=== PATIENT | male | born 1970 | race African-American/Black ===

== ENCOUNTER 2017-11-18 09:03 | Inpatient (IN) | payer OTHER ==
[2017-11-18 10:22] VITALS: BMI 29.2
--- NOTE | 2017-11-18 11:55 | HP ---
CIWA Score - CIWA Score Nausea/Vomitin-No Nausea/No Vomiting Muscle Tremors: 4-Moderate,w/Arms Extend Anxiety: 4-Mod. Anxious/Guarded Agitation: 4-Moderately Restless Paroxysmal Sweats: 4-Forehead w/Sweat Beads Orientation: 0-Oriented Tacttile Disturbances: 1-Very Mild Itch/Numbness Auditory Disturbances: 0-None Visual Disturbances: 0-None Headache: 0-None Present CIWA-Ar Total Score: 17 Admission ROS [facility] - HPI Chief Complaint: I want to get sober, I want to get my life back on track Allergies/Adverse Reactions: Allergies Allergy/AdvReac Type Severity Reaction Status Date / Time No Known Allergies Allergy Verified 11/18/17 10:19 History of Present Illness: 47 y/o man (AA/White) presented to [facility] requesting detox and rehab from alcohol dependence and cocaine/THC abuse. Longest sobriety 3-4 months in 2017. Pmhx of asthma (never intubated, takes albuterol mdi prn); pshx of appendectomy at age 12 or 13; pphx of bipolar (noncompliant with meds: trileptal, wellbutrin , neurontin, last took few months ago); chronic nicotine dependence and cocaine dependence, cannabis abuse. Exam Limitations: No Limitations - Ebola screening Have you traveled outside of the country in the last 21 days: No Have you had contact with anyone from an Ebola affected area: No Have you been sick,other than usual withdrawal symptoms: No - Review of Systems Constitutional: Diaphoresis (runny nose) Respiratory: reports: No Symptoms reported, Cough (occasional dry cough) Cardiac: reports: No Symptoms Reported GI: reports: No Symptoms Reported : reports: No Symptoms Reported Musculoskeletal: reports: Back Pain (b/l flank pain for past 4-5 days, pain a little less now) Integumentary: reports: No Symptoms Reported Neuro: reports: Tremors Endocrine: reports: No Symptoms Reported Hematology: reports: No Symptoms Reported Psychiatric: reports: Orientated x3, Depressed (a little depressed) Other Systems: Reviewed and Negative Patient History - Patient Medical History Hx Anemia: No Hx Asthma: Yes (stable on albuterol mdi) Hx Chronic Obstructive Pulmonary Disease (COPD): No Hx Cancer: No Hx Cardiac Disorders: No Hx Congestive Heart Failure: No Hx Hypertension: No Hx Hypercholesterolemia: No Hx Pacemaker: No HX Cerebrovascular Accident: No Hx Seizures: Yes (1997, alcohol related) Hx Dementia: No Hx Diabetes: No Hx Gastrointestinal Disorders: No Hx Liver Disease: No Hx Genitourinary Disorders: No Hx Sexually Transmitted Disorders: No Hx Renal Disease (ESRD): No Hx Thyroid Disease: No Hx Human Immunodeficiency Virus (HIV): No (negative, last tested few years, accept retesting) Hx Hepatitis C: No Hx Depression: Yes (a little) Hx Suicide Attempt: Yes (age 40, cut left wrist while drinking and depressed) Hx Bipolar Disorder: Yes (dx in 1991 (on wellbutrin, trileptal, neurontin but nc x few months) Hx Schizophrenia: No - Patient Surgical History Past Surgical History: Yes Hx Neurologic Surgery: No Hx Cataract Extraction: No Hx Cardiac Surgery: No Hx Lung Surgery: No Hx Breast Surgery: No Hx Breast Biopsy: No Hx Abdominal Surgery: No Hx Appendectomy: Yes (at age 12 or 13) Hx Cholecystectomy: No Hx Genitourinary Surgery: No Hx Orthopedic Surgery: No Anesthesia Reaction: No - PPD History Previous Implant?: Yes Documented Results: Negative w/proof Implanted On Prior R Admission?: Yes Date: 11/21/15 PPD to be Administered?: Yes - Reproductive History Patient is a Female of Child Bearing Age (11 -55 yrs old): No (male patient) - Smoking Cessation Smoking history: Current every day smoker Have you smoked in the past 12 months: Yes Aproximately how many cigarettes per day: 20 Hx Chewing Tobacco Use: No Initiated information on smoking cessation: Yes 'Breaking Loose' booklet given: 11/18/17 - Substance & Tx. History Hx Alcohol Use: Yes Hx Substance Use: Yes Substance Use Type: Alcohol, Cocaine, Marijuana - Substances Abused Alcohol Route: Oral Frequency: Daily Amount used: vodka(4-5 pints) Age of first use: 17 Date of Last Use: 11/18/17 Cocaine Route: Smoking Frequency: 1-2 times per week Amount used: $90 Age of first use: 41 Date of Last Use: 11/15/17 Marijuana/Hashish Route: Smoking Frequency: 1-3 times last 30 days Amount used: $10 Age of first use: 18 Date of Last Use: 11/17/17 Family Disease History - Family Disease History Family Disease History: Other: Father (alcoholic), Mother (heroin addict, at age 54 from HIV) Admission Physical Exam [facility] - Vital Signs Vital Signs: Vital Signs - 24 hr 11/18/17 09:25 Temperature 97.1 F L Pulse Rate 81 Respiratory 18 Rate Blood Pressure 113/74 - Physical General Appearance: Yes: Within Normal Limits, No Apparent Distress HEENTM: Yes: Within Normal Limits, EOMI, Normocephalic Respiratory: Yes: Within Normal Limits, Lungs Clear Neck: Yes: Within Normal Limits, No masses,lesions,Nodules, Supple Breast: Yes: Within Normal Limits Cardiology: Yes: Within Normal Limits, Regular Rhythm, Regular Rate, S1, S2 Abdominal: Yes: Within Normal Limits, Normal Bowel Sounds, Non Tender, Soft ( old healed surgical scar right lower quadrant from appendectomy) Genitourinary: Yes: Within Normal Limits Back: Yes: Within Normal Limits (no flank tenderness/pain on palpation bilaterally) Musculoskeletal: Yes: Within Normal Limits, full range of Motion, Gait Steady Extremities: Yes: Within Normal Limits, Normal Range of Motion, Tremors Neurological: Yes: Within Normal Limits, automation qa analyst II-XII NML intact, Fully Oriented Integumentary: Yes: Within Normal Limits Lymphatic: Yes: Within Normal Limits - Diagnostic (1) Cannabis abuse Current Visit: Yes Status: Chronic (2) Alcohol dependence with uncomplicated withdrawal Current Visit: Yes Status: Acute (3) Asthma Current Visit: Yes Status: Chronic Qualifiers: Asthma severity: mild intermittent Asthma complication type: uncomplicated Qualified Code(s): J45.20 - Mild intermittent asthma, uncomplicated (4) Cocaine abuse Current Visit: Yes Status: Chronic Comment: it was experimental moment (5) Nicotine dependence Current Visit: Yes Status: Chronic Qualifiers: Nicotine product type: cigarettes Substance use status: uncomplicated Qualified Code(s): F17.210 - Nicotine dependence, cigarettes, uncomplicated Cleared for Admission S - Detox or Rehab [facility] Level of Care: Medically Managed Detox Regimen/Protocol: Librium [facility] Breath Alcohol Content Breath Alcohol Content: 0.044 Urine Drug Screen - Results Drug Screen Negative: No Urine Drug Screen Results: THC-Marijuana, NABILA-Cocaine
[2017-11-18] MEDS ORDERED: ACETAMINOPHEN 325 MG TABLET (FP) PO PRN (12:40)
[2017-11-18] MEDS ORDERED: chlordiazePOXIDE HCL 25 MG CAPSULE PO PRN (12:40)
[2017-11-18] MEDS ORDERED: MAGNESIUM CITRATE 300 ML BOTTLE PO PRN (12:40)
[2017-11-18] MEDS ORDERED: guaiFENesin/D-METHORPHAN HB 10 ML UNIT-DOSE CUPS PO PRN (12:40)
[2017-11-18] MEDS ORDERED: P-EPHED 60MG/TRIPROLIDI 2.5MG TABLET PO PRN (12:40)
[2017-11-18] MEDS ORDERED: NICOTINE POLACRILEX 4 MG GUM BUC PRN (12:40)
[2017-11-18] MEDS ORDERED: LOPERAMIDE HCL 2 MG CAPSULE PO PRN (12:40)
[2017-11-18] MEDS ORDERED: MAGNESIUM HYDROX 2400MG/30ML ORAL SUSPENSION 30 ML CUP PO PRN (12:40)
[2017-11-18] MEDS ORDERED: IBUPROFEN 400 MG TABLET (FP) PO PRN (12:40)
[2017-11-18] MEDS ORDERED: MAG HYDROX/AL HYDROX/SIMETH 30 ML UNIT-DOSE CUP PO PRN (12:40)
[2017-11-18] MEDS ORDERED: MENTHOL/PHENOL 1 EACH UD MM PRN (12:40)
[2017-11-18] MEDS ORDERED: chlordiazePOXIDE HCL 25 MG CAPSULE PO ONE (13:30)
[2017-11-18] MEDS: chlordiazePOXIDE HCL 25 MG CAPSULE PO SCH ×2 (18:00→22:57)
[2017-11-18 19:24] LABS: URINE APPEARANCE CLEAR; URINE BILIRUBIN NEGATIVE (NEGATIVE); URINE BLOOD NEGATIVE (NEGATIVE); URINE COLOR STRAW; URINE GLUCOSE (UA) NEGATIVE (NEGATIVE); URINE KETONE NEGATIVE (NEGATIVE); URINE LEUK ESTERASE NEGATIVE (NEGATIVE); URINE NITRITE NEGATIVE (NEGATIVE); URINE PROTEIN NEGATIVE (NEGATIVE); URINE UROBILINOGEN NEGATIVE mg/dL (0.2-1.0)
[2017-11-18] MEDS: THIAMINE HCL 100 MG TABLET (FP) PO SCH (22:57)
[2017-11-18] MEDS: hydrOXYzine PAMOATE 25 MG CAPSULE (FP) PO PRN (22:59)
[2017-11-19] MEDS: chlordiazePOXIDE HCL 25 MG CAPSULE PO SCH ×4 (05:30→22:19)
--- NOTE | 2017-11-19 09:35 | CONSULT ---
[facility] Psychiatric Consult - Data Date of interview: 11/19/17 Admission source: [facility] Identifying data: Pt. is a 47 year old male, single, father of one, and currently unemployed. This is one of multiple admissions for patient. Pt. admitted for alcohol, cocaine and marijuana dependence. Substance Abuse History: Following information confirmed with Mr. Cha: Smoking Cessation. Smoking history: Current every day smoker. Have you smoked in the past 12 months: Yes. Aproximately how many cigarettes per day: 20. Hx Chewing Tobacco Use: No. Initiated information on smoking cessation: Yes. ' Breaking Loose' booklet given: 11/18/17. - Substance & Tx. History. Hx Alcohol Use: Yes. Hx Substance Use: Yes. Substance Use Type: Alcohol, Cocaine , Marijuana. - Substances Abused. Alcohol. Route: Oral. Frequency: Daily. Amount used: vodka(4-5 pints). Age of first use: 17. Date of Last Use : 11/18/17. Cocaine. Route: Smoking. Frequency: 1-2 times per week. Amount used: $90. Age of first use: 41. Date of Last Use: 11/15/17. Marijuana/Hashish. Route: Smoking. Frequency: 1-3 times last 30 days. Amount used: $10. Age of first use: 18. Date of Last Use: 11/17/17 Medical History: Asthma, Seizures (1997 r/t alcohol withdrawal) Psychiatric History: Patient's first encounter with a psychatrist was as a child. Reports two hospitalizations as a child and none as an adult. Pt. reports a diagnosis of bipolar disorder and was on the medication regime of wellbutrin, trileptal and gabapentin. Pt. denies current outpatient care but is requesting to restart wellbutrin and gabapentin. Pt. denies suicidal and homicidal ideation. Physical/Sexual Abuse/Trauma History: Denies. Mental Status Exam - Mental Status Exam Alert and Oriented to: Time, Place, Person Cognitive Function: Good Patient Appearance: Well Groomed Mood: Euthymic Affect: Mood Congruent Patient Behavior: Fatigued (Pt. awaking up at the moment of interview. ), Cooperative Speech Pattern: Appropriate Voice Loudness: Normal Thought Process: Goal Oriented Thought Disorder: Not Present Hallucinations: Denies Suicidal Ideation: Denies Homicidal Ideation: Denies Insight/Judgement: Poor Sleep: Fair Appetite: Good Muscle strength/Tone: Normal Gait/Station: Normal Psychiatric Findings - Problem List ([place] 1, 2,3) (1) Bipolar disorder Current Visit: Yes Status: Chronic Comment: Self reports. (2) Alcohol dependence with uncomplicated withdrawal Current Visit: Yes Status: Acute (3) Cannabis abuse Current Visit: Yes Status: Chronic (4) Cocaine abuse Current Visit: Yes Status: Chronic Comment: it was experimental moment (5) Nicotine dependence Current Visit: Yes Status: Chronic Qualifiers: Nicotine product type: cigarettes Substance use status: uncomplicated Qualified Code(s): F17.210 - Nicotine dependence, cigarettes, uncomplicated - Initial Treatment Plan Initial Treatment Plan: Psychoeducation provided. Detoxification in progress. Wellbutrin 150mg XL + Gabapentin 300mg TID to be restarted. Benefits and side effects discussed. Verbal consent given. Will continue to monitor patient.
--- NOTE | 2017-11-19 10:21 | PN ---
S CIWA - CIWA Score Nausea/Vomitin Muscle Tremors: 3 Anxiety: 3 Agitation: 3 Paroxysmal Sweats: 1-Minimal Palms Moist Orientation: 0-Oriented Tacttile Disturbances: 1-Very Mild Itch/Numbness Auditory Disturbances: 1-Very Mild Visual Disturbances: 0-None Headache: 2-Mild CIWA-Ar Total Score: 17 [facility] Progress Note (SOAP) Subjective: ALERT,IRRITABLE,ANXIOUS,INTERRUPTED SLEEP,TREMOR Objective: 11/19/17 10:19 Vital Signs Temperature 97.9 F 11/19/17 06:00 Pulse Rate 76 11/19/17 06:00 Respiratory Rate 18 11/19/17 06:00 Blood Pressure 115/73 11/19/17 06:00 O2 Sat by Pulse Oximetry (%) EKG NSR,NORMAL ECG Laboratory Last Values Urine Color Straw 11/18/17 17:00 Urine Appearance Clear 11/18/17 17:00 Urine pH 6.0 (5.0-8.0) 11/18/17 17:00 Ur Specific [place] 1.009 (1.001-1.035) 11/18/17 17:00 Urine Protein Negative (NEGATIVE) 11/18/17 17:00 Urine Glucose (UA) Negative (NEGATIVE) 11/18/17 17:00 Urine Ketones Negative (NEGATIVE) 11/18/17 17:00 Urine Blood Negative (NEGATIVE) 11/18/17 17:00 Urine Nitrite Negative (NEGATIVE) 11/18/17 17:00 Urine Bilirubin Negative (NEGATIVE) 11/18/17 17:00 Urine Urobilinogen Negative mg/dL (0.2-1.0) 11/18/17 17:00 Ur Leukocyte Esterase Negative (NEGATIVE) 11/18/17 17:00 LABS PENDING Assessment: 11/19/17 10:20 WITHDRAWAL SYMPTOM Plan: CONTINUE DETOX
[2017-11-19 10:40] LABS: HEMATOCRIT 43.3 % (35.4-49); MCH 29.1 pg (25.7-33.7); MCHC 32.4 g/dl (32.0-35.9); MEAN CELL VOLUME 89.8 fl (80-96); MEAN PLT VOLUME 9.5 fl (7.5-11.1); PLATELET COUNT 188 K/MM3 (134-434); RBC 4.83 M/mm3 (4.00-5.60); WHITE BLOOD COUNT 5.5 K/mm3 (4.0-10.0)
[2017-11-19] MEDS: PRENATAL VITAMINS W/ FOLIC ACID TABLET (FP) PO SCH (10:43)
[2017-11-19 10:49] LABS: CHLORIDE 106 mmol/L (98-107); SODIUM 139 mmol/L (136-145)
[2017-11-19 10:57] LABS: ALBUMIN 2.9 g/dl (3.4-5.0); ALK PHOS 148 U/L (45-117); ANION GAP 4 (8-16); BILIRUBIN,TOTAL 0.2 mg/dL (0.2-1.0); BLOOD UREA NITROGEN 18 mg/dL (7-18); CALCIUM 7.9 mg/dL (8.5-10.1); CO2 29 mmol/L (21-32); CREATININE 0.8 mg/dL (0.7-1.3); GLUCOSE,RANDOM 129 mg/dL (74-106); SGOT/AST 16 U/L (15-37); SGPT/ALT 24 U/L (12-78)
[2017-11-19] MEDS: GABAPENTIN 300 MG CAPSULE (FP) PO SCH ×2 (13:34→22:19)
[2017-11-19] MEDS: hydrOXYzine PAMOATE 25 MG CAPSULE (FP) PO PRN (22:19)
[2017-11-19] MEDS: THIAMINE HCL 100 MG TABLET (FP) PO SCH (22:19)
--- NOTE | 2017-11-19 23:30 | EKG ---
Test Reason : Blood Pressure : / mmHG Vent. Rate : 085 BPM Atrial Rate : 085 BPM P-R Int : 170 ms QRS Dur : 086 ms QT Int : 346 ms P-R-T Axes : 064 023 029 degrees QTc Int : 411 ms NORMAL SINUS RHYTHM NORMAL ECG NO PREVIOUS ECGS AVAILABLE Confirmed by SAMMI MATA, NIURKA ([id number]) on 11/19/2017 11:30:28 PM Referred By: Carlitos Villalpando Confirmed By:NIURKA CHAPA MD
[2017-11-20] MEDS: GABAPENTIN 300 MG CAPSULE (FP) PO SCH ×3 (05:27→22:00)
[2017-11-20] MEDS: chlordiazePOXIDE HCL 25 MG CAPSULE PO SCH ×2 (05:27→10:32)
--- NOTE | 2017-11-20 10:16 | PN ---
S CIWA - CIWA Score Nausea/Vomitin Muscle Tremors: 3 Anxiety: 3 Agitation: 2 Paroxysmal Sweats: 1-Minimal Palms Moist Orientation: 0-Oriented Tacttile Disturbances: 1-Very Mild Itch/Numbness Auditory Disturbances: 1-Very Mild Visual Disturbances: 0-None Headache: 2-Mild CIWA-Ar Total Score: 16 BHS Progress Note (SOAP) Subjective: ALERT,IRRITABLE,ANXIOUS,INTERRUPTED SLEEP,TREMOR Objective: 11/20/17 10:10 Vital Signs Temperature 97.9 F 11/20/17 06:00 Pulse Rate 80 11/20/17 06:00 Respiratory Rate 18 11/20/17 06:00 Blood Pressure 121/68 11/20/17 06:00 O2 Sat by Pulse Oximetry (%) Laboratory Last Values WBC 5.5 K/mm3 (4.0-10.0) 11/19/17 08:10 RBC 4.83 M/mm3 (4.00-5.60) 11/19/17 08:10 Hgb 14.0 GM/dL (11.7-16.9) 11/19/17 08:10 Hct 43.3 % (35.4-49) 11/19/17 08:10 MCV 89.8 fl (80-96) 11/19/17 08:10 MCH 29.1 pg (25.7-33.7) 11/19/17 08:10 MCHC 32.4 g/dl (32.0-35.9) 11/19/17 08:10 RDW 13.0 % (11.9-15.9) 11/19/17 08:10 Plt Count 188 K/MM3 (134-434) D 11/19/17 08:10 MPV 9.5 fl (7.5-11.1) 11/19/17 08:10 Sodium 139 mmol/L (136-145) 11/19/17 08:10 Potassium 4.0 mmol/L (3.5-5.1) 11/19/17 08:10 Chloride 106 mmol/L (98-107) 11/19/17 08:10 Carbon Dioxide 29 mmol/L (21-32) 11/19/17 08:10 Anion Gap 4 (8-16) L 11/19/17 08:10 BUN 18 mg/dL (7-18) D 11/19/17 08:10 Creatinine 0.8 mg/dL (0.7-1.3) 11/19/17 08:10 Creat Clearance w eGFR > 60 (>60) 11/19/17 08:10 Random Glucose 129 mg/dL (74-106) H D 11/19/17 08:10 Calcium 7.9 mg/dL (8.5-10.1) L 11/19/17 08:10 Total Bilirubin 0.2 mg/dL (0.2-1.0) D 11/19/17 08:10 AST 16 U/L (15-37) D 11/19/17 08:10 ALT 24 U/L (12-78) D 11/19/17 08:10 Alkaline Phosphatase 148 U/L (45-117) H 11/19/17 08:10 Total Protein 6.0 g/dl (6.4-8.2) L 11/19/17 08:10 Albumin 2.9 g/dl (3.4-5.0) L 11/19/17 08:10 Urine Color Straw 11/18/17 17:00 Urine Appearance Clear 11/18/17 17:00 Urine pH 6.0 (5.0-8.0) 11/18/17 17:00 Ur Specific [place] 1.009 (1.001-1.035) 11/18/17 17:00 Urine Protein Negative (NEGATIVE) 11/18/17 17:00 Urine Glucose (UA) Negative (NEGATIVE) 11/18/17 17:00 Urine Ketones Negative (NEGATIVE) 11/18/17 17:00 Urine Blood Negative (NEGATIVE) 11/18/17 17:00 Urine Nitrite Negative (NEGATIVE) 11/18/17 17:00 Urine Bilirubin Negative (NEGATIVE) 11/18/17 17:00 Urine Urobilinogen Negative mg/dL (0.2-1.0) 11/18/17 17:00 Ur Leukocyte Esterase Negative (NEGATIVE) 11/18/17 17:00 RPR Titer Nonreactive (NONREACTIVE) 11/19/17 08:10 Hepatitis C Antibody <0.1 s/co ratio (0.0-0.9) 11/19/17 08:10 HIV 1&2 Antibody Screen Negative 11/19/17 08:10 HIV P24 Antigen Negative 11/19/17 08:10 Assessment: 11/20/17 10:12 WITHDRAWAL SYMPTOM Plan: CONTINUE DETOX,BGM MONITORING,INITIAL GLUCOSE 129,FASTING GLUCOSE IN AM
[2017-11-20] MEDS: PRENATAL VITAMINS W/ FOLIC ACID TABLET (FP) PO SCH (10:32)
[2017-11-20] MEDS: chlordiazePOXIDE 5 MG CAPSULE PO SCH ×2 (17:45→22:00)
--- NOTE | 2017-11-20 19:11 | PN ---
JEET Progress Note Note: Psychiatric nurse practitioner note: Pt. requesting to restart trileptal. Pt with a history of taking trileptal 300mg BID but discontinued medication after drinking alcohol daily. Will start patient on trileptal 150mg BID. Pt. agreeable with plan. Benefits and side effects discussed. Verbal consent given. Will continue to monitor.
--- NOTE | 2017-11-20 21:34 | PN ---
[facility] Progress Note Note: Report received by MIORA Her patient had bloody BM. Patient was evaluated at the bedside. Patient reports LLQ pain and norma red blood in the toilet bowel. Reports this happen before a month ago. Reports poor medical follow up out patient. Patient AOx3, self directing, in no apparent distress, mildly anxious. Lungs clear throughout, no adventitious breath sounds Heart Rate and Rhythm within normal limits BS x 4, pain on deep palpation on LLQ Plan: Patient was informed on the need to be transfer to [facility] for further evaluation , patient reports understanding. Patient was sent to [facility], report given to Dr. Dov MD.
[2017-11-20] MEDS: THIAMINE HCL 100 MG TABLET (FP) PO SCH (22:00)
[2017-11-20] MEDS: OXcarbazepine 300 MG TABLET (UD) PO SCH (23:19)
[2017-11-21] MEDS: hydrOXYzine PAMOATE 25 MG CAPSULE (FP) PO PRN ×2 (03:39→22:31)
[2017-11-21] MEDS: chlordiazePOXIDE 5 MG CAPSULE PO SCH ×2 (05:45→10:19)
[2017-11-21] MEDS: GABAPENTIN 300 MG CAPSULE (FP) PO SCH ×3 (05:45→22:27)
[2017-11-21] MEDS: PRENATAL VITAMINS W/ FOLIC ACID TABLET (FP) PO SCH (10:19)
--- NOTE | 2017-11-21 10:55 | PN ---
S Progress Note (SOAP) Subjective: ALERT,INTERRUPTED SLEEP,ANXIOUS Objective: 11/21/17 10:54 Vital Signs Temperature 98.1 F 11/21/17 10:13 Pulse Rate 93 H 11/21/17 10:13 Respiratory Rate 18 11/21/17 10:13 Blood Pressure 130/78 11/21/17 10:13 O2 Sat by Pulse Oximetry (%) Assessment: 11/21/17 10:54 WITHDRAWAL SYMPTOM Plan: CONTINUE DETOX.FASTING GLUCOSE PENDING,DISCHARGE IN AM
[2017-11-21] MEDS: chlordiazePOXIDE HCL 10 MG CAPSULE PO SCH ×2 (17:33→22:27)
[2017-11-21] MEDS: THIAMINE HCL 100 MG TABLET (FP) PO SCH (22:27)
[2017-11-21] MEDS ORDERED: ALBUTEROL SO4 18 GM HFA INHALER IH PRN (22:57)
[2017-11-22] MEDS: chlordiazePOXIDE HCL 10 MG CAPSULE PO SCH (05:53)
[2017-11-22] MEDS: GABAPENTIN 300 MG CAPSULE (FP) PO SCH (05:53)
[2017-11-22] MEDS: PRENATAL VITAMINS W/ FOLIC ACID TABLET (FP) PO SCH (09:22)
[2017-11-22] MEDS: OXcarbazepine 300 MG TABLET (UD) PO SCH (09:24)
[2017-11-22 09:54] VITALS: BP 133/84; PULSE 95; TEMP 96.1
--- NOTE | 2017-11-22 12:16 | DS ---
[facility] Detox Discharge Summary Admission Date: 11/18/17 Discharge Date: 11/22/17 - History Present History: Alcohol Dependence Additional Comments: discuss aftercare with counselor and patient that the patient wants to go home waiting for inpatient rehab position available, patient is confident maintenance sober by attending community support meeting till position open. - Physical Exam Results Vital Signs: Vital Signs Temperature 96.1 F L 11/22/17 09:53 Pulse Rate 95 H 11/22/17 09:53 Respiratory Rate 20 11/22/17 09:53 Blood Pressure 133/84 11/22/17 09:53 O2 Sat by Pulse Oximetry (%) Pertinent Admission Physical Exam Findings: withdrawal sx Laboratory Last Values WBC 5.5 K/mm3 (4.0-10.0) 11/19/17 08:10 RBC 4.83 M/mm3 (4.00-5.60) 11/19/17 08:10 Hgb 14.0 GM/dL (11.7-16.9) 11/19/17 08:10 Hct 43.3 % (35.4-49) 11/19/17 08:10 MCV 89.8 fl (80-96) 11/19/17 08:10 MCH 29.1 pg (25.7-33.7) 11/19/17 08:10 MCHC 32.4 g/dl (32.0-35.9) 11/19/17 08:10 RDW 13.0 % (11.9-15.9) 11/19/17 08:10 Plt Count 188 K/MM3 (134-434) D 11/19/17 08:10 MPV 9.5 fl (7.5-11.1) 11/19/17 08:10 Sodium 139 mmol/L (136-145) 11/19/17 08:10 Potassium 4.0 mmol/L (3.5-5.1) 11/19/17 08:10 Chloride 106 mmol/L (98-107) 11/19/17 08:10 Carbon Dioxide 29 mmol/L (21-32) 11/19/17 08:10 Anion Gap 4 (8-16) L 11/19/17 08:10 BUN 18 mg/dL (7-18) D 11/19/17 08:10 Creatinine 0.8 mg/dL (0.7-1.3) 11/19/17 08:10 Creat Clearance w eGFR > 60 (>60) 11/19/17 08:10 POC Glucometer 107 UNITS (80-120) 11/22/17 05:56 Random Glucose 129 mg/dL (74-106) H D 11/19/17 08:10 Fasting Glucose 108 mg/dL (70-105) H 11/21/17 08:00 Calcium 7.9 mg/dL (8.5-10.1) L 11/19/17 08:10 Total Bilirubin 0.2 mg/dL (0.2-1.0) D 11/19/17 08:10 AST 16 U/L (15-37) D 11/19/17 08:10 ALT 24 U/L (12-78) D 11/19/17 08:10 Alkaline Phosphatase 148 U/L (45-117) H 11/19/17 08:10 Total Protein 6.0 g/dl (6.4-8.2) L 11/19/17 08:10 Albumin 2.9 g/dl (3.4-5.0) L 11/19/17 08:10 Urine Color [place]raw 11/18/17 17:00 Urine Appearance Clear 11/18/17 17:00 Urine pH 6.0 (5.0-8.0) 11/18/17 17:00 Ur Specific [place] 1.009 (1.001-1.035) 11/18/17 17:00 Urine Protein Negative (NEGATIVE) 11/18/17 17:00 Urine Glucose (UA) Negative (NEGATIVE) 11/18/17 17:00 Urine Ketones Negative (NEGATIVE) 11/18/17 17:00 Urine Blood Negative (NEGATIVE) 11/18/17 17:00 Urine Nitrite Negative (NEGATIVE) 11/18/17 17:00 Urine Bilirubin Negative (NEGATIVE) 11/18/17 17:00 Urine Urobilinogen Negative mg/dL (0.2-1.0) 11/18/17 17:00 Ur Leukocyte Esterase Negative (NEGATIVE) 11/18/17 17:00 RPR Titer Nonreactive (NONREACTIVE) 11/19/17 08:10 Hepatitis C Antibody <0.1 s/co ratio (0.0-0.9) 11/19/17 08:10 HIV 1&2 Antibody Screen Negative 11/19/17 08:10 HIV P24 Antigen Negative 11/19/17 08:10 lab noted - Treatment Hospital Course: Detox Protocol Followed, Detoxed Safely, Responded well, Discharged Condition Good, Rehab Referral Accepted Patient has Accepted a Rehab Referral to: [facility] - Medication Discharge Medications: Ambulatory Orders Bupropion HCl [Wellbutrin Xl] 300 mg PO DAILY 11/18/17 Gabapentin [Neurontin -] 300 mg PO BID 11/18/17 Oxcarbazepine [Trileptal -] 300 mg PO BID 11/18/17 Albuterol Sulfate Inhaler - [Ventolin Hfa Inhaler -] 2 inh PO Q4H PRN #1 inhaler 11/22/17 Bupropion HCl [Wellbutrin Xl -] 150 mg PO DAILY #30 tab.sr.24h 11/22/17 Gabapentin [Neurontin -] 300 mg PO TID #90 capsule 11/22/17 Oxcarbazepine [Trileptal -] 150 mg PO BID #60 tablet 11/22/17 - Diagnosis (1) Alcohol dependence with uncomplicated withdrawal Status: Acute (2) Asthma Status: Chronic Qualifiers: Asthma severity: mild Asthma persistence: intermittent Asthma complication type: uncomplicated Qualified Code(s): J45.20 - Mild intermittent asthma, uncomplicated (3) Bipolar disorder Status: Suspected Qualifiers: Active/Remission status: in partial remission Most recent bipolar episode type: mixed Qualified Code(s): F31.77 - Bipolar disorder, in partial remission , most recent episode mixed - AMA Did Patient Leave Against Medical Advice: No
== END 2017-11-22 09:32 | disposition home or self-care (01) | DRG 774 ==
LOC: YASAS 09:03 → Y6N 12:20
PROVIDERS: ADMIT Internal Medicine; ATTEND Internal Medicine
PROC: HZ2ZZZZ Detoxification Services for Substance Abuse Treatment (ICD-10-PCS; principal; 2017-11-18)
DX: F10.230 Alcohol dependence with withdrawal, uncomplicated (principal); F14.20 Cocaine dependence, uncomplicated; F12.20 Cannabis dependence, uncomplicated; F17.210 Nicotine dependence, cigarettes, uncomplicated; F31.77 Bipolar disorder, in partial remission, most recent episode mixed; Z91.5 Personal history of self-harm; Z86.69 Personal history of other diseases of the nervous system and sense organs
CPT/HCPCS: 36415; 80053; 81003; 82947; 82962; 85027; 86593; 86803; 87389; 93005; 93010

== ENCOUNTER 2017-11-20 22:27 | Emergency (ER) | payer OTHER ==
[2017-11-20 22:40] VITALS: BP 131/85; PULSE 98; TEMP 98; BMI 28.0
--- NOTE | 2017-11-20 22:40 | PDOC ---
History of Present Illness - General History Source: Patient Exam Limitations: No Limitations - History of Present Illness Initial Comments: 11/20/17 23:05 The patient is a 47 year old male, with a significant past medical history of bipolar disorder, asthma, substance abuse (cocaine, cannabis, alcohol), who presents to the emergency department from [facility], complaining of left lower quadrant abdominal pain and one episode of hematochezia. The patient reports he noticed bright red blood in his stool after going to the bathroom earlier today. He denies any recent diarrhea, melena or pain with bowel movement. The patient states he has hemorrhoids but has not noticed the bright red blood in his stool in the past. He denies any recent fevers, chills, headache or dizziness. He denies any recent nausea, vomit, diarrhea or constipation. He denies any recent chest pain or shortness of breath. He denies any recent dysuria, frequency, urgency or hematuria. Allergies: NKA <Ryder Morris - Last Filed: 11/21/17 01:08> <Shruti Martinez - Last Filed: 11/21/17 01:50> - General Chief Complaint: Rectal Bleed Stated Complaint: BLOOD IN STOOL Time Seen by Provider: 11/20/17 22:34 Past History <Ryder Morris - Last Filed: 11/21/17 01:08> - Past Medical History Anemia: No Asthma: Yes (stable on albuterol mdi) Cancer: No Cardiac Disorders: No CVA: No COPD: No CHF: No Dementia: No Diabetes: No GI Disorders: No Disorders: No HTN: No Hypercholesterolemia: No Kidney Stones: No Liver Disease: No Seizures: Yes (1998, alcohol related) Thyroid Disease: No - Surgical History Abdominal Surgery: No Appendectomy: Yes (at age 12 or 13) Cardiac Surgery: No Cholecystectomy: No Lung Surgery: No Neurologic Surgery: No Orthopedic Surgery: No - Reproductive History Testicular Surgery: No - Suicide/Smoking/Psychosocial Hx Smoking History: Current every day smoker Have you smoked in the past 12 months: Yes Number of Cigarettes Smoked Daily: 20 Information on smoking cessation initiated: Yes 'Breaking Loose' booklet given: 11/18/17 Hx Alcohol Use: Yes Drug/Substance Use Hx: Yes Substance Use Type: Alcohol, Cocaine, Marijuana Hx Substance Use Treatment: No <Shruti Martinez - Last Filed: 11/21/17 01:50> - Past Medical History Allergies/Adverse Reactions: Allergies Allergy/AdvReac Type Severity Reaction Status Date / Time No Known Allergies Allergy Verified 11/20/17 22:38 Home Medications: Ambulatory Orders Albuterol Sulfate Inhaler - [Ventolin Hfa Inhaler -] 2 inh PO Q4H PRN 11/19/15 Bupropion HCl [Wellbutrin Xl] 300 mg PO DAILY 11/18/17 Gabapentin [Neurontin -] 300 mg PO BID 11/18/17 Oxcarbazepine [Trileptal -] 300 mg PO BID 11/18/17 Abd/GI Specific PMHX - Complaint Specific PMHX Hepatitis: No Pancreatitis: No <Shruti Martinez - Last Filed: 11/21/17 01:50> Review of Systems - Review of Systems Comments:: 11/20/17 23:07 CONSTITUTIONAL: Absent: fever, no chills, no fatigue EYES: Absent: visual changes ENT: Absent: ear pain, no sore throat CARDIOVASCULAR: Absent: chest pain, no palpitations RESPIRATORY: Absent: cough, no SOB GI: Present: +Left lower quadrant abdominal pain. +Hematochezia. Absent: no nausea, no vomiting, no constipation, no diarrhea GENITOURINARY: Absent: dysuria, no frequency, no hematuria MUSKULOSKELETAL: Absent: back pain, no arthralgia, no myalgia SKIN: Absent: rash NEURO: Absent: headache <Ryder Morris - Last Filed: 11/21/17 01:08> *Physical Exam - Vital Signs Last Vital Signs Temp Pulse Resp BP Pulse Ox 98.0 F 98 H 14 131/85 99 11/20/17 22:38 11/20/17 22:38 11/20/17 22:38 11/20/17 22:38 11/20/17 22:38 - Physical Exam Comments: 11/20/17 23:08 GENERAL: Well-appearing, well-nourished. No apparent distress. HEENT: Normocephalic, atraumatic. PERRL, EOM intact. CARDIOVASCULAR: Normal S1, S2. Regular rate and rhythm. PULMONARY: Clear to auscultation bilaterally. ABDOMEN: Soft, non-distended, non-tender. RECTAL: Normal rectal tone. No stool in vault. No external hemorrhoids appreciated. EXTREMITIES: Normal ROM in all four extremities. No gross deformities. SKIN: Warm, dry. No rash NEUROLOGICAL: No focal neurological deficits. <Rydre Morris - Last Filed: 11/21/17 01:08> - Vital Signs Last Vital Signs Temp Pulse Resp BP Pulse Ox 98.0 F 98 H 14 131/85 99 11/20/17 22:38 11/20/17 22:38 11/20/17 22:38 11/20/17 22:38 11/20/17 22:38 <Shruti Martinez - Last Filed: 11/21/17 01:50> ED Treatment Course - LABORATORY CBC & Chemistry Diagram: 11/20/17 23:06 11/20/17 23:06 - RADIOLOGY Radiograph Interpretation: 11/21/17 01:08 EXAM: ABDOMEN \T\ PELVIS CT WITH CONTR HISTORY: Diverticulitis COMPARISON: None. FINDINGS: Lung bases are clear. The visualized cardiac chambers are normal size and configuration. Normal liver, gallbladder, pancreas, spleen, adrenal glands and kidneys. The stomach and abdominal small and large bowel are normal. Large amount of solid stool is noted. There is no aortic aneurysm. There is no significant retroperitoneal lymphadenopathy. The pelvic small and large bowel are normal. There is no evidence of appendicitis although the appendix is not clearly visualized. The urinary bladder and prostate gland are normal. No pelvic free fluid is identified. There is no significant pelvic lymphadenopathy. IMPRESSION: No definite acute pathology. Large amount of solid stool. Reported by Warren Barajas MD <Ryder Morris - Last Filed: 11/21/17 01:08> - LABORATORY CBC & Chemistry Diagram: 11/20/17 23:06 11/20/17 23:06 <Shruti Martinez - Last Filed: 11/21/17 01:50> Medical Decision Making - Medical Decision Making 11/20/17 22:40 47 -year-old male brought in by ambulance from [facility] for left lower quadrant pain and right red rectal bleeding that occurred this evening. Past medical history significant for asthma, never intubated takes albuterol when necessary past surgical history appendectomy age 12. By polar noncompliant with medications. Social history chronic nicotinic dependence, cocaine dependence, cannabis, and cannabis abuse and alcohol abuse. Smokes one pack a day, daily alcohol use 5 45 pints since the age of 17. 9. Family history father alcoholic, mother heroin addict age 54 from HIV <Shruti Martinez - Last Filed: 11/21/17 01:50> *DC/Admit/Observation/Transfer - Attestations Scribe Attestion: 11/20/17 23:09 Documentation prepared by Ryder Morris, acting as medical assistant prn for Shruti Martinez MD. <Ryder Morris - Last Filed: 11/21/17 01:08> <Shruti Martinez - Last Filed: 11/21/17 01:50> Diagnosis at time of Disposition: Rectal bleeding - Discharge Dispostion Disposition: HOME Condition at time of disposition: Stable - Patient Instructions Printed Discharge Instructions: DI for Rectal Bleeding Additional Instructions: please try anusol suppositories CT SCAN showed large amount of stool, encourage stool softeners return for any melena or worserning symptoms
[2017-11-20] MEDS ORDERED: SODIUM CHLORIDE 1,000 ML IV STA (22:42)
[2017-11-20] MEDS ORDERED: PANTOPRAZOLE SODIUM 40 MG in SODIUM CHLORIDE 100 ML IVPB ONE (22:42)
[2017-11-20] MEDS ORDERED: PANTOPRAZOLE SODIUM 40 MG VIAL ONE (23:13)
[2017-11-20 23:34] LABS: BASO % 0.7 % (0-2.0); EOS % 4.9 % (0-4.5); HEMATOCRIT 43.3 % (35.4-49); HEMOGLOBIN 14.1 GM/dL (11.7-16.9); LYMPH % 23.7 % (8-40); MCH 28.9 pg (25.7-33.7); MCHC 32.5 g/dl (32.0-35.9); MONO % 9.5 % (3.8-10.2); NEUT % 61.2 % (42.8-82.8); PLATELET COUNT 191 K/MM3 (134-434); RBC 4.87 M/mm3 (4.00-5.60); RDW 13.1 % (11.9-15.9); RETICULOCYTES 1.13 % (0.5-1.5); WHITE BLOOD COUNT 6.8 K/mm3 (4.0-10.0)
[2017-11-20 23:46] LABS: INR 0.88 (0.82-1.09)
[2017-11-20] MEDS ORDERED: PHENYLEPHRINE 0.25%/STARCH 1 EACH SUPP.RECT RC ONE (23:57)
[2017-11-21 00:04] LABS: ALBUMIN 3.1 g/dl (3.4-5.0); ANION GAP 13 (8-16); BLOOD UREA NITROGEN 14 mg/dL (7-18); CALCIUM 9.1 mg/dL (8.5-10.1); CHLORIDE 104 mmol/L (98-107); CO2 25 mmol/L (21-32); CREATININE 0.8 mg/dL (0.7-1.3); GLUCOSE,RANDOM 123 mg/dL (74-106); POTASSIUM 4.1 mmol/L (3.5-5.1); SGOT/AST 26 U/L (15-37); SGPT/ALT 45 U/L (12-78); SODIUM 142 mmol/L (136-145); TOT PROT 6.8 g/dl (6.4-8.2)
[2017-11-21 00:05] LABS: ALK PHOS 143 U/L (45-117)
[2017-11-21 00:08] LABS: BILIRUBIN,TOTAL < 0.1 mg/dL (0.2-1.0)
[2017-11-21] MEDS ORDERED: PHENYLEPHRINE 0.25%/STARCH 1 EACH SUPP.RECT RC ONE (00:08)
== END 2017-11-21 02:52 | disposition home or self-care (01) ==
LOC: JER 22:27
PROC: 3E033GC Introduction of Other Therapeutic Substance into Peripheral Vein, Percutaneous Approach (ICD-10-PCS; principal; 2017-11-20)
DX: K62.5 Hemorrhage of anus and rectum (principal); J45.909 Unspecified asthma, uncomplicated; F31.9 Bipolar disorder, unspecified; F14.10 Cocaine abuse, uncomplicated; F12.10 Cannabis abuse, uncomplicated; F10.10 Alcohol abuse, uncomplicated
CPT/HCPCS: 36415; 74177-TC; 80053; 82272; 85025; 85044; 85610; 86850; 86900; 86901; 96365; 99282-25

== ENCOUNTER 2018-02-12 18:17 | Inpatient (IN) | payer OTHER ==
[2018-02-12 21:03] VITALS: BMI 30.1
[2018-02-12] MEDS ORDERED: P-EPHED 60MG/TRIPROLIDI 2.5MG TABLET PO PRN (23:21)
[2018-02-12] MEDS ORDERED: guaiFENesin/D-METHORPHAN HB 10 ML UNIT-DOSE CUPS PO PRN (23:21)
[2018-02-12] MEDS ORDERED: NICOTINE POLACRILEX 2 MG GUM BC PRN (23:21)
[2018-02-12] MEDS ORDERED: MAG HYDROX/AL HYDROX/SIMETH 30 ML UNIT-DOSE CUP PO PRN (23:21)
[2018-02-12] MEDS ORDERED: ALBUTEROL SO4 18 GM HFA INHALER IH PRN (23:21)
[2018-02-12] MEDS ORDERED: LOPERAMIDE HCL 2 MG CAPSULE PO PRN (23:21)
[2018-02-12] MEDS ORDERED: MAGNESIUM HYDROX 2400MG/30ML ORAL SUSPENSION 30 ML CUP PO PRN (23:21)
[2018-02-12] MEDS ORDERED: chlordiazePOXIDE HCL 25 MG CAPSULE PO PRN (23:21)
[2018-02-12] MEDS ORDERED: IBUPROFEN 400 MG TABLET (FP) PO PRN (23:21)
[2018-02-12] MEDS ORDERED: hydrOXYzine PAMOATE 50 MG CAPSULE (FP) PO PRN (23:21)
[2018-02-12] MEDS ORDERED: ACETAMINOPHEN 325 MG TABLET (FP) PO PRN (23:21)
[2018-02-12] MEDS ORDERED: MAGNESIUM CITRATE 300 ML BOTTLE PO PRN (23:21)
[2018-02-12] MEDS ORDERED: MENTHOL/PHENOL 1 EACH UD MM PRN (23:21)
--- NOTE | 2018-02-12 23:21 | HP ---
CIWA Score - CIWA Score Nausea/Vomitin Muscle Tremors: 4-Moderate,w/Arms Extend Anxiety: 4-Mod. Anxious/Guarded Agitation: 4-Moderately Restless Paroxysmal Sweats: 4-Forehead w/Sweat Beads Orientation: 2-Disoriented Date<2 days Tacttile Disturbances: 0-None Auditory Disturbances: 0-None Visual Disturbances: 0-None Headache: 0-None Present CIWA-Ar Total Score: 21 Admission ROS S - HPI Allergies/Adverse Reactions: Allergies Allergy/AdvReac Type Severity Reaction Status Date / Time No Known Allergies Allergy Verified 11/20/17 22:38 - Ebola screening Have you traveled outside of the country in the last 21 days: No (N) Have you had contact with anyone from an Ebola affected area: No Have you been sick,other than usual withdrawal symptoms: No Do you have a fever: No Patient History - Patient Medical History Hx Anemia: No Hx Asthma: Yes (stable on albuterol mdi) Hx Chronic Obstructive Pulmonary Disease (COPD): No Hx Cancer: No Hx Cardiac Disorders: No Hx Congestive Heart Failure: No Hx Hypertension: No Hx Hypercholesterolemia: No Hx Pacemaker: No HX Cerebrovascular Accident: No Hx Seizures: Yes (1997, alcohol related) Hx Dementia: No Hx Diabetes: No Hx Gastrointestinal Disorders: No Hx Liver Disease: No Hx Genitourinary Disorders: No Hx Sexually Transmitted Disorders: No Hx Renal Disease (ESRD): No Hx Thyroid Disease: No Hx Human Immunodeficiency Virus (HIV): No Hx Hepatitis C: No Hx Depression: Yes Hx Suicide Attempt: Yes (age 40, cut left wrist while drinking and depressed) Hx Bipolar Disorder: Yes (dx in 1991 (on wellbutrin, trileptal, neurontin but nc x few months) Hx Schizophrenia: No - Patient Surgical History Past Surgical History: Yes Hx Neurologic Surgery: No Hx Cataract Extraction: No Hx Cardiac Surgery: No Hx Lung Surgery: No Hx Breast Surgery: No Hx Breast Biopsy: No Hx Abdominal Surgery: No Hx Appendectomy: Yes (at age 12 or 13) Hx Cholecystectomy: No Hx Genitourinary Surgery: No Hx Orthopedic Surgery: No Anesthesia Reaction: No - PPD History Previous Implant?: Yes Documented Results: Negative w/proof Implanted On Prior R Admission?: Yes Date: 11/20/17 Results: 0mm PPD to be Administered?: No - Smoking Cessation Smoking history: Current every day smoker Have you smoked in the past 12 months: Yes Aproximately how many cigarettes per day: 20 Cigars Per Day: 0 Hx Chewing Tobacco Use: No Initiated information on smoking cessation: Yes 'Breaking Loose' booklet given: 02/12/18 - Substance & Tx. History Hx Alcohol Use: Yes Hx Substance Use: Yes Substance Use Type: Alcohol Hx Substance Use Treatment: Yes ([facility]) - Substances Abused vodka Route: Oral Frequency: Daily Amount used: 6 pints Age of first use: 17 Date of Last Use: 02/12/18 thc Route: Smoking Frequency: 1-3 times last 30 days Amount used: 1 joint Age of first use: 17 Date of Last Use: 01/29/18 cocaine Route: Inhalation Frequency: 3-6 times per week Amount used: $50 Age of first use: 17 Date of Last Use: 02/10/18 Family Disease History - Family Disease History Family Disease History: Other: Father (alcoholic), Mother (heroin addict, at age 54 from HIV) Admission Physical Exam [facility] - Vital Signs Vital Signs: Vital Signs - 24 hr 02/12/18 21:01 Temperature 98.6 F Pulse Rate 82 Respiratory 21 Rate Blood Pressure 143/99 - Physical General Appearance: Yes: Appropriately Dressed, Mild Distress, Tremorous, Anxious HEENTM: Yes: EOMI, Normocephalic, Normal Voice, L[place], Pharynx Normal Respiratory: Yes: Chest Non-Tender, Lungs Clear, Normal Breath Sounds, No Respiratory Distress, No Accessory Muscle Use Neck: Yes: No masses,lesions,Nodules, Supple, Trachea in good position Breast: Yes: Breast Exam Deferred Cardiology: Yes: Regular Rhythm, Regular Rate, S1, S2 Abdominal: Yes: Normal Bowel Sounds, Non Tender, Soft, Protuberent Genitourinary: Yes: Within Normal Limits Back: Yes: Normal Inspection Musculoskeletal: Yes: full range of Motion, Gait Steady Extremities: Yes: Normal Capillary Refill, Normal Range of Motion, Non-Tender, Tremors Neurological: Yes: film touch up inspector II-XII NML intact, Fully Oriented, Alert, Motor Strength 5/5 Integumentary: Yes: Warm, Moist, Other (flushing) Lymphatic: Yes: Within Normal Limits - Diagnostic (1) Cocaine dependence, uncomplicated Current Visit: Yes Status: Chronic (2) Cannabis abuse, uncomplicated Current Visit: Yes Status: Chronic (3) Alcohol dependence with uncomplicated withdrawal Current Visit: Yes Status: Chronic (4) Drug withdrawal seizure Current Visit: Yes Status: Suspected (5) Asthma Current Visit: Yes Status: Chronic Qualifiers: Asthma severity: mild Asthma persistence: intermittent Asthma complication type: uncomplicated Qualified Code(s): J45.20 - Mild intermittent asthma, uncomplicated (6) Nicotine dependence Current Visit: Yes Status: Chronic Qualifiers: Nicotine product type: cigarettes Substance use status: uncomplicated Qualified Code(s): F17.210 - Nicotine dependence, cigarettes, uncomplicated Cleared for Admission S - Detox or Rehab [facility] Level of Care: Medically Managed Detox Regimen/Protocol: Librium Claeared for Rehab Admission: No [facility] Breath Alcohol Content Breath Alcohol Content: 0 Urine Drug Screen - Results Drug Screen Negative: No Urine Drug Screen Results: THC-Marijuana, NABILA-Cocaine
[2018-02-13] MEDS: chlordiazePOXIDE HCL 25 MG CAPSULE PO SCH ×5 (02:52→22:18)
[2018-02-13 10:10] LABS: HEMATOCRIT 39.6 % (35.4-49); HEMOGLOBIN 13.5 GM/dL (11.7-16.9); MCH 29.7 pg (25.7-33.7); MCHC 34.2 g/dl (32.0-35.9); MEAN CELL VOLUME 86.9 fl (80-96); MEAN PLT VOLUME 8.8 fl (7.5-11.1); PLATELET COUNT 161 K/MM3 (134-434); RBC 4.56 M/mm3 (4.00-5.60); RDW 14.4 % (11.9-15.9); WHITE BLOOD COUNT 5.3 K/mm3 (4.0-10.0)
[2018-02-13 10:21] LABS: CHLORIDE 104 mmol/L (98-107); POTASSIUM 3.9 mmol/L (3.5-5.1); SODIUM 140 mmol/L (136-145)
[2018-02-13] MEDS: PRENATAL VITAMINS W/ FOLIC ACID TABLET (FP) PO SCH (10:24)
[2018-02-13 10:38] LABS: ALBUMIN 3.2 g/dl (3.4-5.0); ALK PHOS 159 U/L (45-117); ANION GAP 7 (8-16); BILIRUBIN,TOTAL 0.7 mg/dL (0.2-1.0); BLOOD UREA NITROGEN 14 mg/dL (7-18); CALCIUM 8.6 mg/dL (8.5-10.1); CO2 29 mmol/L (21-32); GLUCOSE,RANDOM 94 mg/dL (74-106); SGOT/AST 16 U/L (15-37); SGPT/ALT 20 U/L (12-78); TOT PROT 6.6 g/dl (6.4-8.2)
--- NOTE | 2018-02-13 10:41 | PN ---
S CIWA - CIWA Score Nausea/Vomitin Muscle Tremors: 3 Anxiety: 3 Agitation: 2 Paroxysmal Sweats: No Perspiration Orientation: 0-Oriented Tacttile Disturbances: 1-Very Mild Itch/Numbness Auditory Disturbances: 1-Very Mild Visual Disturbances: 0-None Headache: 2-Mild CIWA-Ar Total Score: 15 S Progress Note (SOAP) Subjective: ALERT,IRRITABLE,ANXIOUS,INTERRUPTED SLEEP,TREMOR Objective: 02/13/18 10:37 Vital Signs Temperature 97.7 F 02/13/18 10:06 Pulse Rate 74 02/13/18 10:06 Respiratory Rate 19 02/13/18 10:06 Blood Pressure 100/58 02/13/18 10:06 O2 Sat by Pulse Oximetry (%) EKG NSR,NORMAL ECG QT388/409 02/13/18 10:38 NO CHEST PAIN,NO SOB,NO DIZZINESS Laboratory Last Values Sodium 140 mmol/L (136-145) 02/13/18 07:30 Potassium 3.9 mmol/L (3.5-5.1) 02/13/18 07:30 Chloride 104 mmol/L (98-107) 02/13/18 07:30 Carbon Dioxide 29 mmol/L (21-32) 02/13/18 07:30 Anion Gap 7 (8-16) L 02/13/18 07:30 BUN 14 mg/dL (7-18) 02/13/18 07:30 Creatinine 1.0 mg/dL (0.7-1.3) D 02/13/18 07:30 Creat Clearance w eGFR > 60 (>60) 02/13/18 07:30 Random Glucose 94 mg/dL (74-106) D 02/13/18 07:30 Calcium 8.6 mg/dL (8.5-10.1) 02/13/18 07:30 Total Bilirubin 0.7 mg/dL (0.2-1.0) D 02/13/18 07:30 AST 16 U/L (15-37) D 02/13/18 07:30 ALT 20 U/L (12-78) D 02/13/18 07:30 Alkaline Phosphatase 159 U/L (45-117) H 02/13/18 07:30 Total Protein 6.6 g/dl (6.4-8.2) 02/13/18 07:30 Albumin 3.2 g/dl (3.4-5.0) L 02/13/18 07:30 Assessment: 02/13/18 10:41 WITHDRAWAL SYMPTOM Plan: CONTINUE DETOX
[2018-02-13] MEDS: NICOTINE 21 MG/24 HOURS TOPICAL PATCH TD SCH (11:06)
--- NOTE | 2018-02-13 12:03 | EKG ---
Test Reason : Blood Pressure : / mmHG Vent. Rate : 067 BPM Atrial Rate : 067 BPM P-R Int : 176 ms QRS Dur : 096 ms QT Int : 388 ms P-R-T Axes : 029 017 013 degrees QTc Int : 409 ms NORMAL SINUS RHYTHM NORMAL ECG WHEN COMPARED WITH ECG OF 18-NOV-2017 13:30, NO SIGNIFICANT CHANGE WAS FOUND Confirmed by KB REVELES MD ([id number]) on 02/13/2018 12:03:02 PM Referred By: Confirmed By:KB REVELES MD
[2018-02-13 18:22] LABS: URINE APPEARANCE TURBID; URINE BILIRUBIN NEGATIVE (<2.0 mg/dL); URINE COLOR AMBER; URINE GLUCOSE (UA) NEGATIVE (NEGATIVE); URINE KETONE NEGATIVE (NEGATIVE); URINE LEUK ESTERASE NEGATIVE (NEGATIVE); URINE NITRITE NEGATIVE (NEGATIVE); URINE PROTEIN NEGATIVE (NEGATIVE); URINE UROBILINOGEN NEGATIVE mg/dL (0.2-1.0)
--- NOTE | 2018-02-13 19:44 | CONSULT ---
[facility] Psychiatric Consult - Data Date of interview: 02/13/18 Admission source: [facility] Identifying data: Readmission to [facility] for this 47 y/o AA male seeking detox treatment on for alcohol,cocaine and cannabis dependence.Patient is single without dependents,homeless,unemployed and reportedly deprived of any source of income. Substance Abuse History: Confirmed by patient in this interview.Smoking history : Current every day smoker. Have you smoked in the past 12 months: Yes. Aproximately how many cigarettes per day: 20. Cigars Per Day: 0. Hx Chewing Tobacco Use: No. Initiated information on smoking cessation: Yes. 'Breaking Loose' booklet given: 02/12/18. - Substance & Tx. History. Hx Alcohol Use: Yes. Hx Substance Use: Yes. Substance Use Type: Alcohol. Hx Substance Use Treatment: Yes ([facility]). - Substances Abused. vodka. Route: Oral. Frequency : Daily. Amount used: 6 pints. Age of first use: 17. Date of Last Use: . thc. Route: Smoking. Frequency: 1-3 times last 30 days. Amount used: 1 joint. Age of first use: 17. Date of Last Use: 01/29/18. cocaine. Route : Inhalation. Frequency: 3-6 times per week. Amount used: $50. Age of first use: 17. Date of Last Use: 02/10/18 Medical History: Bronchial asthma. Psychiatric History: Distant history of psychiaric hospitalizations (childhood) .Diagnosed as an adult with Bipolar Disorder.Mr Cha reports recent scripts for gabapentin,oxcarbazepine,trazodone and bupropion.No consistent contact with a specific OPD care provider.Patient is chronically non-adherent to medications.Uses CPE settings as resources for medications refillls." I have NOT taken my medications for past three weeks ".Patient endorses a history of suicide attempts by self-mutilation (cutting). Physical/Sexual Abuse/Trauma History: Patient denies. Additional Comment: Urine Drug Screen Results: THC-Marijuana, NABILA-Cocaine.Noted. Mental Status Exam - Mental Status Exam Alert and Oriented to: Time, Place, Person Cognitive Function: Good Patient Appearance: Well Groomed Mood: Nervous, Withdrawn Affect: Mood Congruent Patient Behavior: Fatigued, Cooperative Speech Pattern: Clear, Appropriate Voice Loudness: Normal Thought Process: Goal Oriented Thought Disorder: Not Present Hallucinations: Denies Suicidal Ideation: Denies Homicidal Ideation: Denies Insight/Judgement: Poor Sleep: Poorly, Difficulty falling asleep Appetite: Good Muscle strength/Tone: Normal Gait/Station: Normal Psychiatric Findings - Problem List ([place] 1, 2,3) (1) Alcohol dependence with uncomplicated withdrawal Current Visit: Yes Status: Acute (2) Cocaine dependence, uncomplicated Current Visit: Yes Status: Acute (3) Cannabis abuse Current Visit: Yes Status: Acute (4) Nicotine dependence Current Visit: Yes Status: Acute Qualifiers: Nicotine product type: cigarettes Substance use status: uncomplicated Qualified Code(s): F17.210 - Nicotine dependence, cigarettes, uncomplicated (5) Bipolar disorder Current Visit: Yes Status: Chronic Qualifiers: Active/Remission status: in partial remission Most recent bipolar episode type: mixed Qualified Code(s): F31.77 - Bipolar disorder, in partial remission , most recent episode mixed Comment: As per existing records. (6) Insomnia Current Visit: Yes Status: Acute (7) Non compliance w medication regimen Current Visit: Yes Status: Acute - Initial Treatment Plan Initial Treatment Plan: Psychoeducation.Sleep hygiene.Detoxification.Medications : trileptal 300 mg po bid + gabapentin 300 mg po bid.Side effects/benefits of both drugs are discussed with the patient.Mr Cha agrees with this careplan.Labs reviewed. Normal electrolytes.Observation.Oxcarbamazepine level : requested.Will follow.
--- NOTE | 2018-02-13 20:30 | PN ---
S Progress Note Note: As per nursing information Trileptal order 300mg po bid in liquid has been changed for Trileptal 3oomg po bid in tablets, as per lo''s rrequest
[2018-02-13] MEDS ORDERED: OXcarbazepine 300 MG/5 ML 250 ML BULK BOTTLE PO SCH (22:00)
[2018-02-13] MEDS: GABAPENTIN 300 MG CAPSULE (FP) PO SCH (22:18)
[2018-02-13] MEDS: THIAMINE HCL 100 MG TABLET (FP) PO SCH (22:18)
[2018-02-13] MEDS: MELATONIN 5 MG TABLETS PO PRN (22:21)
[2018-02-13] MEDS: carBAMazepine 100 MG TAB.CHEW PO SCH (23:00)
[2018-02-14] MEDS: chlordiazePOXIDE HCL 25 MG CAPSULE PO SCH ×3 (05:13→17:16)
--- NOTE | 2018-02-14 09:57 | PN ---
S CIWA - CIWA Score Nausea/Vomitin Muscle Tremors: 3 Anxiety: 3 Agitation: 3 Paroxysmal Sweats: 1-Minimal Palms Moist Orientation: 0-Oriented Tacttile Disturbances: 1-Very Mild Itch/Numbness Auditory Disturbances: 1-Very Mild Visual Disturbances: 0-None Headache: 2-Mild CIWA-Ar Total Score: 17 BHS Progress Note (SOAP) Subjective: ALERT,IRRITABLE,ANXIOUS,INTERRUPTED SLEEP,PAIN IN THE BODY Objective: 02/14/18 09:55 Vital Signs Temperature 97.7 F 02/14/18 06:28 Pulse Rate 75 02/14/18 07:59 Respiratory Rate 18 02/14/18 06:28 Blood Pressure 103/61 02/14/18 07:59 O2 Sat by Pulse Oximetry (%) EKG NSR QT 388/409 Laboratory Last Values WBC 5.3 K/mm3 (4.0-10.0) 02/13/18 07:30 RBC 4.56 M/mm3 (4.00-5.60) 02/13/18 07:30 Hgb 13.5 GM/dL (11.7-16.9) 02/13/18 07:30 Hct 39.6 % (35.4-49) 02/13/18 07:30 MCV 86.9 fl (80-96) 02/13/18 07:30 MCH 29.7 pg (25.7-33.7) 02/13/18 07:30 MCHC 34.2 g/dl (32.0-35.9) 02/13/18 07:30 RDW 14.4 % (11.9-15.9) 02/13/18 07:30 Plt Count 161 K/MM3 (134-434) 02/13/18 07:30 MPV 8.8 fl (7.5-11.1) 02/13/18 07:30 Sodium 140 mmol/L (136-145) 02/13/18 07:30 Potassium 3.9 mmol/L (3.5-5.1) 02/13/18 07:30 Chloride 104 mmol/L (98-107) 02/13/18 07:30 Carbon Dioxide 29 mmol/L (21-32) 02/13/18 07:30 Anion Gap 7 (8-16) L 02/13/18 07:30 BUN 14 mg/dL (7-18) 02/13/18 07:30 Creatinine 1.0 mg/dL (0.7-1.3) D 02/13/18 07:30 Creat Clearance w eGFR > 60 (>60) 02/13/18 07:30 Random Glucose 94 mg/dL (74-106) D 02/13/18 07:30 Calcium 8.6 mg/dL (8.5-10.1) 02/13/18 07:30 Total Bilirubin 0.7 mg/dL (0.2-1.0) D 02/13/18 07:30 AST 16 U/L (15-37) D 02/13/18 07:30 ALT 20 U/L (12-78) D 02/13/18 07:30 Alkaline Phosphatase 159 U/L (45-117) H 02/13/18 07:30 Total Protein 6.6 g/dl (6.4-8.2) 02/13/18 07:30 Albumin 3.2 g/dl (3.4-5.0) L 02/13/18 07:30 Urine Color [place] 02/12/18 17:45 Urine Appearance Turbid 02/12/18 17:45 Urine pH 5.0 (5.0-8.0) 02/12/18 17:45 Ur Specific [place] 1.023 (1.001-1.035) 02/12/18 17:45 Urine Protein Negative (NEGATIVE) 02/12/18 17:45 Urine Glucose (UA) Negative (NEGATIVE) 02/12/18 17:45 Urine Ketones Negative (NEGATIVE) 02/12/18 17:45 Urine Blood Negative (NEGATIVE) 02/12/18 17:45 Urine Nitrite Negative (NEGATIVE) 02/12/18 17:45 Urine Bilirubin Negative (<2.0 mg/dL) 02/12/18 17:45 Urine Urobilinogen Negative mg/dL (0.2-1.0) 02/12/18 17:45 Ur Leukocyte Esterase Negative (NEGATIVE) 02/12/18 17:45 RPR Titer Nonreactive (NONREACTIVE) 02/13/18 07:30 Assessment: 02/14/18 09:56 WITHDRAWAL SYMPTOM Plan: CONTINUE DETOX
[2018-02-14] MEDS: PRENATAL VITAMINS W/ FOLIC ACID TABLET (FP) PO SCH (11:14)
[2018-02-14] MEDS: NICOTINE 21 MG/24 HOURS TOPICAL PATCH TD SCH (11:14)
[2018-02-14] MEDS: GABAPENTIN 300 MG CAPSULE (FP) PO SCH ×2 (11:14→22:38)
[2018-02-14] MEDS: carBAMazepine 100 MG TAB.CHEW PO SCH (11:15)
[2018-02-14] MEDS: chlordiazePOXIDE 5 MG CAPSULE PO SCH (22:37)
[2018-02-14] MEDS: THIAMINE HCL 100 MG TABLET (FP) PO SCH (22:38)
[2018-02-14] MEDS: OXcarbazepine 300 MG TABLET (UD) PO SCH (22:38)
[2018-02-14] MEDS: MELATONIN 5 MG TABLETS PO PRN (22:39)
[2018-02-15] MEDS: chlordiazePOXIDE 5 MG CAPSULE PO SCH ×3 (05:59→17:50)
[2018-02-15] MEDS: GABAPENTIN 300 MG CAPSULE (FP) PO SCH ×2 (10:55→22:41)
[2018-02-15] MEDS: OXcarbazepine 300 MG TABLET (UD) PO SCH ×2 (10:55→22:41)
[2018-02-15] MEDS: PRENATAL VITAMINS W/ FOLIC ACID TABLET (FP) PO SCH (10:55)
[2018-02-15] MEDS: NICOTINE 21 MG/24 HOURS TOPICAL PATCH TD SCH (10:55)
--- NOTE | 2018-02-15 11:38 | PN ---
S Progress Note (SOAP) Subjective: ALERT,IRRITABLE,ANXIOUS,INTERRUPTED SLEEP Objective: 02/15/18 11:37 Vital Signs Temperature 98.4 F 02/15/18 09:47 Pulse Rate 92 H 02/15/18 09:47 Respiratory Rate 18 02/15/18 09:47 Blood Pressure 134/79 02/15/18 09:47 O2 Sat by Pulse Oximetry (%) Assessment: 02/15/18 11:37 WITHDRAWAL SYMPTOM Plan: CONTINUE DETOX,DISCHARGE IN AM
[2018-02-15] MEDS: chlordiazePOXIDE HCL 10 MG CAPSULE PO SCH (22:40)
[2018-02-15] MEDS: THIAMINE HCL 100 MG TABLET (FP) PO SCH (22:41)
[2018-02-15] MEDS: MELATONIN 5 MG TABLETS PO PRN (22:42)
[2018-02-16] MEDS: chlordiazePOXIDE HCL 10 MG CAPSULE PO SCH (05:36)
[2018-02-16 06:38] VITALS: BP 112/60; PULSE 70; TEMP 97.5
== END 2018-02-16 07:08 | disposition home or self-care (01) | DRG 774 ==
LOC: YASAS 18:17 → Y6N 22:40
PROVIDERS: ADMIT Surgery; ATTEND Surgery
PROC: HZ2ZZZZ Detoxification Services for Substance Abuse Treatment (ICD-10-PCS; principal; 2018-02-12)
DX: F10.230 Alcohol dependence with withdrawal, uncomplicated (principal); F14.20 Cocaine dependence, uncomplicated; F12.20 Cannabis dependence, uncomplicated; F17.210 Nicotine dependence, cigarettes, uncomplicated; F31.9 Bipolar disorder, unspecified; G40.509 Epileptic seizures related to external causes, not intractable, without status epilepticus; G47.00 Insomnia, unspecified; J45.20 Mild intermittent asthma, uncomplicated; H01.12 Discoid lupus erythematosus of eyelid; Z91.14 Patient's other noncompliance with medication regimen; Z91.5 Personal history of self-harm
CPT/HCPCS: 36415; 80053; 80183; 81003; 85027; 86593; 93005; 93010

== ENCOUNTER 2020-03-26 09:35 | Inpatient (IN) | payer OTHER ==
--- NOTE | 2020-03-26 09:57 | BHS.RME ---
Substance Use & Tx History - Substance Use History Alcohol Substance amount: 1-2 pints vodka Frequency of use: Daily Substance route: Oral Date of Last Use: 03/26/20 Cocaine- Powder Substance amount: $200 Frequency of use: Daily Substance route: Smoking Date of Last Use: 03/25/20 Marijuana/Hashish Substance amount: 1 blunt Frequency of use: Less than 3 times per week Substance route: Smoking Date of Last Use: 03/23/20 Nicotine Substance amount: 1 pack Frequency of use: Daily Substance route: Smoking Date of Last Use: 03/26/20 Physical/Psych/Mental Status - Behavior Eye Contact: Normal - Cooperativeness Cooperativeness: Cooperative - Thinking Thought Processes: Tight, Logical, Goal Directed - Physical Health Problems Is patient presently having any pain?: No Does patient presently have any injuries (include location): No Does patient currently have a fever: No Is patient : No CIWA Nausea/Vomitin-No Nausea/No Vomiting Muscle Tremors: 1-None Visible, but [place] Anxiety: 2 Agitation: 2 Paroxysmal Sweats: No Perspiration Orientation: 0-Oriented Tacttile Disturbances: 0-None Auditory Disturbances: 0-None Visual Disturbances: 0-None Headache: 1-Very Mild CIWA-Ar Total Score: 6
--- NOTE | 2020-03-26 11:49 | HP ---
CIWA Score Nausea/Vomitin-No Nausea/No Vomiting Muscle Tremors: 1-None Visible, but [place] Anxiety: 2 Agitation: 2 Paroxysmal Sweats: No Perspiration Orientation: 0-Oriented Tacttile Disturbances: 0-None Auditory Disturbances: 0-None Visual Disturbances: 0-None Headache: 1-Very Mild CIWA-Ar Total Score: 6 - Admission Criteria OASAS Guidelines: Admission for Medically Managed Detox: Requires at least one of the followin. CIWA greater than 12 2. Seizures within the past 24 hours 3. Delirium tremens within the past 24 hours 4. Hallucinations within the past 24 hours 5. Acute intervention needed for co occurring medical disorder 6. Acute intervention needed for co occurring psychiatric disorder 7. Severe withdrawal that cannot be handled at a lower level of care (continued vomiting, continued diarrhea, abnormal vital signs) requiring intravenous medication and/or fluids 8. Admitting History and Physical - Admission Chief Complaint: Mr. Cha is a 49 yo man who presents to [facility] stating "I want to get my life back on track". History of Present Illness: Mr. Cha is a 49 yo man who presents to [facility] stating "I want to get my life back on track". He was last her in 2018 for detox. He relapsed immediately upon discharge. PMH: Asthma PSH: Appendectomy Psych: depreseion, biplar, on no meds, not evaluated, no SI, no SA SOC: lives with Legal: none Substance Use History Alcohol Substance amount: 1-2 pints vodka Frequency of use: Daily Substance route: Oral Date of Last Use: 03/26/20 Started: age 17y Hx of seizure and blackout yesterday, friend witnessed: tx with ice Hx of eye information management manager Cocaine- Powder Substance amount: $200 Frequency of use: Daily Substance route: Smoking Date of Last Use: 03/25/20 Started: age 17y Marijuana/Hashish Substance amount: 1 blunt Frequency of use: Less than 3 times per week Substance route: Smoking Date of Last Use: 03/23/20 Started age 17y Nicotine Substance amount: 1 pack Frequency of use: Daily Substance route: Smoking Date of Last Use: 03/26/20 Started age 17 y Meets admission criteria, full extent of withdrawal may be masked by current intoxication, pt at risk for relapse, untreated comorbid psychiatric issues History Source: Patient Limitations to Obtaining History: No Limitations - Smoking History Smoking history: Current every day smoker Have you smoked in the past 12 months: Yes Aproximately how many cigarettes per day: 20 - Alcohol/Substance Use Hx Alcohol Use: Yes Admission [facility] Allergies/Adverse Reactions: Allergies Allergy/AdvReac Type Severity Reaction Status Date / Time No Known Allergies Allergy Verified 02/12/18 23:31 Exam Limitations: No Limitations - Ebola screening Have you traveled outside of the country in the last 21 days: No Have you been sick,other than usual withdrawal symptoms: No Do you have a fever: No - Review of Systems Constitutional: Unintentional Wgt. Loss (lost 20 lbs in the past few years) EENT: reports: Blurred Vision (has glasses with him) Respiratory: reports: Other (SOB with asthma flairs) Cardiac: reports: No Symptoms Reported GI: reports: No Symptoms Reported : reports: No Symptoms Reported Musculoskeletal: reports: No Symptoms Reported Integumentary: reports: No Symptoms Reported Neuro: reports: No Symptoms reported Endocrine: reports: No Symptoms Reported Hematology: reports: No Symptoms Reported Psychiatric: reports: Anxious Patient History - Patient Medical History Hx Anemia: No Hx Asthma: Yes (stable on albuterol mdi) Hx Chronic Obstructive Pulmonary Disease (COPD): No Hx Cancer: No Hx Cardiac Disorders: No Hx Congestive Heart Failure: No Hx Hypertension: No Hx Hypercholesterolemia: No Hx Pacemaker: No HX Cerebrovascular Accident: No Hx Seizures: Yes (1997, alcohol related) Hx Dementia: No Hx Diabetes: No Hx Gastrointestinal Disorders: No Hx Liver Disease: No Hx Genitourinary Disorders: No Hx Sexually Transmitted Disorders: No Hx Renal Disease (ESRD): No Hx Thyroid Disease: No Hx Human Immunodeficiency Virus (HIV): No Hx Hepatitis C: No Hx Depression: Yes Hx Suicide Attempt: Yes (age 40, cut left wrist while drinking and depressed) Hx Bipolar Disorder: Yes (dx in 1991 (on wellbutrin, trileptal, neurontin but nc x few months) Hx Schizophrenia: No - Patient Surgical History Past Surgical History: Yes Hx Neurologic Surgery: No Hx Cataract Extraction: No Hx Cardiac Surgery: No Hx Lung Surgery: No Hx Breast Surgery: No Hx Breast Biopsy: No Hx Abdominal Surgery: No Hx Appendectomy: Yes (at age 12 or 13) Hx Cholecystectomy: No Hx Genitourinary Surgery: No Hx Orthopedic Surgery: No Anesthesia Reaction: No - PPD History Date: 11/20/17 Results: 0mm - Smoking Cessation Smoking history: Current every day smoker Have you smoked in the past 12 months: Yes Aproximately how many cigarettes per day: 20 Cigars Per Day: 0 Hx Chewing Tobacco Use: No Initiated information on smoking cessation: Yes 'Breaking Loose' booklet given: 03/26/20 Admission Physical Exam [facility] - Physical General Appearance: Yes: Nourished, Anxious HEENTM: Yes: EOMI, Hearing grossly Normal, Normocephalic, Normal Voice Respiratory: Yes: Lungs Clear, Normal Breath Sounds Neck: Yes: Within Normal Limits, Supple Breast: Yes: Breast Exam Deferred Cardiology: Yes: Regular Rhythm, Regular Rate, S1, S2 Abdominal: Yes: Non Tender, Flat, Soft, Hernia Genitourinary: Yes: Other (deferred) Back: Yes: Normal Inspection Musculoskeletal: Yes: Gait Steady Extremities: Yes: Normal Inspection, Non-Tender Neurological: Yes: Alert, Normal Mood/Affect, Normal Response Integumentary: Yes: Within Normal Limits - Diagnostic (1) Alcohol dependence with uncomplicated withdrawal Current Visit: No Status: Acute (2) Cannabis abuse Current Visit: No Status: Acute (3) Cocaine dependence, uncomplicated Current Visit: No Status: Acute (4) Nicotine dependence Current Visit: Yes Status: Acute Qualifiers: Nicotine product type: cigarettes Substance use status: uncomplicated Qualified Code(s): F17.210 - Nicotine dependence, cigarettes, uncomplicated (5) Asthma Current Visit: No Status: Chronic Qualifiers: Asthma severity: mild Asthma persistence: intermittent Asthma complication type: uncomplicated Qualified Code(s): J45.20 - Mild intermittent asthma, uncomplicated Cleared for Admission [facility] - Detox or Rehab [facility] Level of Care: Medically Managed Detox Regimen/Protocol: Librium Breathalyzer - Breathalyzer Breathalyzer: 0.196 Urine Drug Screen - Test Device Lot number: [id number] Expiration date: 05/31/21 - Control Is test valid?: Yes - Results Drug screen NEGATIVE: No Urine drug screen results: NABILA-Cocaine Inpatient Rehab Admission - Rehab Decision to Admit Inpatient rehab admission?: No
[2020-03-26] MEDS ORDERED: ALBUTEROL SO4 HFA INHALER IH PRN (11:56)
[2020-03-26] MEDS ORDERED: IBUPROFEN 400 MG TABLET (FP) PO PRN (11:57)
[2020-03-26] MEDS ORDERED: NICOTINE POLACRILEX 2 MG GUM BUC PRN (11:57)
[2020-03-26] MEDS ORDERED: MENTHOL/PHENOL 1 EACH UD MM PRN (11:57)
[2020-03-26] MEDS ORDERED: ONDANSETRON *ODT* 4 MG TABLET SL PRN (11:57)
[2020-03-26] MEDS ORDERED: MAGNESIUM CITRATE 300 ML BOTTLE PO PRN (11:57)
[2020-03-26] MEDS ORDERED: ACETAMINOPHEN 325 MG TABLET (FP) PO PRN ×2 (11:57)
[2020-03-26] MEDS ORDERED: MAG HYDROX/AL HYDROX/SIMETH 30 ML UNIT-DOSE CUP PO PRN (11:57)
[2020-03-26] MEDS ORDERED: METHOCARBAMOL 500 MG TABLET PO PRN (11:57)
[2020-03-26] MEDS ORDERED: chlordiazePOXIDE HCL 25 MG CAPSULE PO PRN (11:57)
[2020-03-26] MEDS ORDERED: MAGNESIUM HYDROX 2400MG/30ML ORAL SUSPENSION 30 ML CUP PO PRN (11:57)
[2020-03-26] MEDS ORDERED: BISMUTH SUBSALICYLATE 262 MG/15 ML BTL PO PRN (11:57)
--- NOTE | 2020-03-26 13:16 | EKG ---
Test Reason : Blood Pressure : / mmHG Vent. Rate : 091 BPM Atrial Rate : 091 BPM P-R Int : 168 ms QRS Dur : 090 ms QT Int : 348 ms P-R-T Axes : 070 025 020 degrees QTc Int : 428 ms NORMAL SINUS RHYTHM EARLY REPOLARIZATION WHEN COMPARED WITH ECG OF 13-FEB-2018 02:35, NO SIGNIFICANT CHANGE WAS FOUND Confirmed by CARY BAILEY MD ([id number]) on 03/26/2020 1:15:53 PM Referred By: Confirmed By:CARY BAILEY MD
[2020-03-26 13:21] VITALS: BMI 23.4
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
[2020-03-26] MEDS: hydrOXYzine PAMOATE 25 MG CAPSULE (FP) PO SCH ×3 (14:26→22:21)
[2020-03-26] MEDS: NICOTINE 21 MG/24 HOURS TOPICAL PATCH TD SCH (14:27)
[2020-03-26] MEDS: PRENATAL VITAMINS W/ FOLIC ACID TABLET (FP) PO SCH (14:27)
[2020-03-26 16:59] LABS: HEMATOCRIT 35.3 % (35.4-49); HEMOGLOBIN 12.1 GM/dL (11.7-16.9); MCH 32.5 pg (25.7-33.7); MCHC 34.4 g/dl (32.0-35.9); MEAN CELL VOLUME 94.7 fl (80-96); MEAN PLT VOLUME 10.4 fl (7.5-11.1); PLATELET COUNT 100 K/MM3 (134-434); RBC 3.73 M/mm3 (4.00-5.60); RDW 14.9 % (11.9-15.9); WHITE BLOOD COUNT 3.7 K/mm3 (4.0-10.0)
[2020-03-26 17:13] LABS: ALBUMIN 2.5 g/dl (3.4-5.0); BILIRUBIN,TOTAL 0.8 mg/dL (0.2-1); BLOOD UREA NITROGEN 16.5 mg/dL (7-18); CALCIUM 7.8 mg/dL (8.5-10.1); POTASSIUM 3.7 mmol/L (3.5-5.1); TOT PROT 6.3 g/dl (6.4-8.2)
[2020-03-26] MEDS: chlordiazePOXIDE HCL 25 MG CAPSULE PO SCH ×2 (17:24→22:21)
[2020-03-26] MEDS ORDERED: MELATONIN 5 MG TABLETS PO SCH (22:00)
[2020-03-26] MEDS: THIAMINE HCL 100 MG TABLET (FP) PO SCH (22:21)
[2020-03-26] MEDS: SUVOREXANT 10 MG TABLET PO PRN (22:23)
[2020-03-27] MEDS: chlordiazePOXIDE HCL 25 MG CAPSULE PO SCH ×2 (05:41→10:24)
[2020-03-27] MEDS: hydrOXYzine PAMOATE 25 MG CAPSULE (FP) PO SCH ×5 (05:41→22:44)
[2020-03-27] MEDS: PRENATAL VITAMINS W/ FOLIC ACID TABLET (FP) PO SCH (10:24)
[2020-03-27] MEDS: NICOTINE 21 MG/24 HOURS TOPICAL PATCH TD SCH (10:26)
--- NOTE | 2020-03-27 11:22 | PN ---
S CIWA - CIWA Score Nausea/Vomitin-No Nausea/No Vomiting Muscle Tremors: None Anxiety: 3 Agitation: 0-Normal Activity Paroxysmal Sweats: 3 Orientation: 0-Oriented Tacttile Disturbances: 0-None Auditory Disturbances: 0-None Visual Disturbances: 0-None Headache: 2-Mild CIWA-Ar Total Score: 8 S Progress Note (SOAP) Subjective: c/o sweats, anxiety, muscle aches, and headache. Objective: 03/27/20 11:19 Vital Signs 03/27/20 03/27/20 03/27/20 03:30 06:15 08:55 Temperature 96.9 F L 97.3 F L Pulse Rate 76 78 Respiratory 18 18 18 Rate Blood Pressure 122/75 126/76 O2 Sat by Pulse 99 Oximetry (%) Laboratory Last Values WBC 3.7 K/mm3 (4.0-10.0) L 03/26/20 13:30 RBC 3.73 M/mm3 (4.00-5.60) L 03/26/20 13:30 Hgb 12.1 GM/dL (11.7-16.9) 03/26/20 13:30 Hct 35.3 % (35.4-49) L 03/26/20 13:30 MCV 94.7 fl (80-96) 03/26/20 13:30 MCH 32.5 pg (25.7-33.7) 03/26/20 13:30 MCHC 34.4 g/dl (32.0-35.9) 03/26/20 13:30 RDW 14.9 % (11.9-15.9) 03/26/20 13:30 Plt Count 100 K/MM3 (134-434) L D 03/26/20 13:30 MPV 10.4 fl (7.5-11.1) D 03/26/20 13:30 Sodium 138 mmol/L (136-145) 03/26/20 13:30 Potassium 3.7 mmol/L (3.5-5.1) 03/26/20 13:30 Chloride 106 mmol/L (98-107) 03/26/20 13:30 Carbon Dioxide 22 mmol/L (21-32) 03/26/20 13:30 Anion Gap 10 MMOL/L (8-16) 03/26/20 13:30 BUN 16.5 mg/dL (7-18) 03/26/20 13:30 Creatinine 1.0 mg/dL (0.55-1.3) 03/26/20 13:30 Est GFR (CKD-EPI)AfAm 101.98 03/26/20 13:30 Est GFR (CKD-EPI)NonAf 87.99 03/26/20 13:30 Random Glucose 180 mg/dL (74-106) H 03/26/20 13:30 Calcium 7.8 mg/dL (8.5-10.1) L 03/26/20 13:30 Total Bilirubin 0.8 mg/dL (0.2-1) 03/26/20 13:30 AST 226 U/L (15-37) H 03/26/20 13:30 ALT 144 U/L (13-61) H 03/26/20 13:30 Alkaline Phosphatase 468 U/L (45-117) H 03/26/20 13:30 Total Protein 6.3 g/dl (6.4-8.2) L 03/26/20 13:30 Albumin 2.5 g/dl (3.4-5.0) L 03/26/20 13:30 Syphilis Serology Non-reactive (NONREACTIVE) 03/26/20 13:30 Labs noted with elevated AST/ALT. Assessment: 03/27/20 11:20 AOX3, in no acute respiratory distress. Full ROM, ambulating in the unit. Withdrawal symptoms. Elevated liver enzymes. covid-19 test result pending. 03/27/20 11:20 Plan: Change Librium protocol to ativan protocol.
[2020-03-27] MEDS ORDERED: LORazepam 1 MG TABLET PO PRN (11:23)
[2020-03-27] MEDS: LORazepam 1 MG TABLET PO SCH ×2 (17:12→22:44)
[2020-03-27] MEDS: THIAMINE HCL 100 MG TABLET (FP) PO SCH (22:44)
[2020-03-28] MEDS ORDERED: chlordiazePOXIDE HCL 25 MG CAPSULE PO SCH (05:00)
[2020-03-28] MEDS: hydrOXYzine PAMOATE 25 MG CAPSULE (FP) PO SCH ×5 (06:00→22:24)
[2020-03-28] MEDS: LORazepam 0.5 MG TABLET PO SCH ×4 (06:00→22:25)
[2020-03-28] MEDS: PRENATAL VITAMINS W/ FOLIC ACID TABLET (FP) PO SCH (10:08)
[2020-03-28] MEDS: NICOTINE 21 MG/24 HOURS TOPICAL PATCH TD SCH (10:08)
--- NOTE | 2020-03-28 10:47 | PN ---
S CIWA - CIWA Score Nausea/Vomitin-Mild Nausea/No Vomiting Muscle Tremors: 1-None Visible, but [place] Anxiety: 1-Mildly Anxious Agitation: 1-Slight > Activity Paroxysmal Sweats: 1-Minimal Palms Moist Orientation: 0-Oriented Tacttile Disturbances: 0-None Auditory Disturbances: 0-None Visual Disturbances: 1-Very Mild Sensitivity Headache: 0-None Present CIWA-Ar Total Score: 6 BHS Progress Note (SOAP) Subjective: 49 years old male admitted on 03/26/20 for alcohol withdrawal sx management treating with ativan detox regiment sweating tolerating food and fluid well seen by psychiatrist france soni for insomnia doing better today encourage the patient consider aftercare for alcohol recovery Objective: 03/28/20 10:49 Vital Signs - 24 hr 03/27/20 03/27/20 03/27/20 12:52 16:50 20:58 Temperature 96.8 F L 97.1 F L 96.9 F L Pulse Rate 91 H 85 80 Respiratory 18 16 16 Rate Blood Pressure 120/73 135/91 131/93 O2 Sat by Pulse 98 97 Oximetry (%) 03/28/20 03/28/20 03/28/20 00:30 03:30 06:23 Temperature 97.6 F Pulse Rate 57 L Respiratory 18 18 18 Rate Blood Pressure 121/74 O2 Sat by Pulse 97 Oximetry (%) 03/28/20 08:50 Temperature 97.3 F L Pulse Rate 72 Respiratory 18 Rate Blood Pressure 112/63 O2 Sat by Pulse Oximetry (%) Laboratory Tests 03/26/20 03/26/20 03/26/20 13:30 13:30 13:30 WBC 3.7 L RBC 3.73 L Hgb 12.1 Hct 35.3 L MCV 94.7 MCH 32.5 MCHC 34.4 RDW 14.9 Plt Count 100 L D MPV 10.4 D Sodium 138 Potassium 3.7 Chloride 106 Carbon Dioxide 22 Anion Gap 10 BUN 16.5 Creatinine 1.0 Est GFR (CKD-EPI)AfAm 101.98 Est GFR (CKD-EPI)NonAf 87.99 Random Glucose 180 H Calcium 7.8 L Total Bilirubin 0.8 AST 226 H ALT 144 H Alkaline Phosphatase 468 H Total Protein 6.3 L Albumin 2.5 L Syphilis Serology Non-reactive COVID-19 (RUBIA) 03/26/20 14:50 WBC RBC Hgb Hct MCV MCH MCHC RDW Plt Count MPV Sodium Potassium Chloride Carbon Dioxide Anion Gap BUN Creatinine Est GFR (CKD-EPI)AfAm Est GFR (CKD-EPI)NonAf Random Glucose Calcium Total Bilirubin AST ALT Alkaline Phosphatase Total Protein Albumin Syphilis Serology COVID-19 (RUBIA) Not detected 03/28/20 10:50 glucose elevation fasting glucose ast elevation repeat ast on 03/29/20 03/28/20 10:52 Assessment: 03/28/20 10:52 alcohol withdrawal 03/28/20 10:53 serum glucose elevation serum ast elevation Plan: ativan regiment fasting serum glucose and repeat ast
[2020-03-28] MEDS: THIAMINE HCL 100 MG TABLET (FP) PO SCH (22:25)
[2020-03-28] MEDS: SUVOREXANT 10 MG TABLET PO PRN (22:26)
[2020-03-29] MEDS ORDERED: chlordiazePOXIDE HCL 10 MG CAPSULE PO PRN
[2020-03-29] MEDS ORDERED: chlordiazePOXIDE HCL 10 MG CAPSULE PO SCH (05:00)
[2020-03-29] MEDS: LORazepam 0.5 MG TABLET PO SCH ×4 (05:57→22:22)
[2020-03-29] MEDS: hydrOXYzine PAMOATE 25 MG CAPSULE (FP) PO SCH ×5 (05:57→22:22)
[2020-03-29] MEDS: NICOTINE 21 MG/24 HOURS TOPICAL PATCH TD SCH (10:08)
[2020-03-29] MEDS: PRENATAL VITAMINS W/ FOLIC ACID TABLET (FP) PO SCH (10:08)
--- NOTE | 2020-03-29 10:12 | PN ---
S CIWA - CIWA Score Nausea/Vomitin-No Nausea/No Vomiting Muscle Tremors: 1-None Visible, but [place] Anxiety: 1-Mildly Anxious Agitation: 0-Normal Activity Paroxysmal Sweats: No Perspiration Orientation: 0-Oriented Tacttile Disturbances: 1-Very Mild Itch/Numbness Auditory Disturbances: 0-None Visual Disturbances: 0-None Headache: 0-None Present CIWA-Ar Total Score: 3 BHS Progress Note (SOAP) Subjective: 49 years old male admitted on 03/26/20 for alcohol withdrawal sx management treating with ativan detox regiment feeling better today encourage the patient to discuss aftercare with staff as well as community support networking for alcohol recovery Objective: 03/29/20 10:16 Vital Signs - 24 hr 03/28/20 03/28/20 03/28/20 12:45 16:45 20:31 Temperature 96.8 F L 97.5 F L 97.3 F L Pulse Rate 99 H 103 H 108 H Respiratory 18 16 16 Rate Blood Pressure 102/62 121/86 137/90 O2 Sat by Pulse 98 98 Oximetry (%) 03/29/20 03/29/20 03/29/20 00:29 05:50 06:34 Temperature 97.8 F Pulse Rate 82 Respiratory 18 18 18 Rate Blood Pressure 113/67 O2 Sat by Pulse 98 Oximetry (%) 03/29/20 08:38 Temperature 98.0 F Pulse Rate 86 Respiratory 18 Rate Blood Pressure 98/65 O2 Sat by Pulse Oximetry (%) Laboratory Tests 03/26/20 03/26/20 03/26/20 13:30 13:30 13:30 WBC 3.7 L RBC 3.73 L Hgb 12.1 Hct 35.3 L MCV 94.7 MCH 32.5 MCHC 34.4 RDW 14.9 Plt Count 100 L D MPV 10.4 D Sodium 138 Potassium 3.7 Chloride 106 Carbon Dioxide 22 Anion Gap 10 BUN 16.5 Creatinine 1.0 Est GFR (CKD-EPI)AfAm 101.98 Est GFR (CKD-EPI)NonAf 87.99 Random Glucose 180 H Calcium 7.8 L Total Bilirubin 0.8 AST 226 H ALT 144 H Alkaline Phosphatase 468 H Total Protein 6.3 L Albumin 2.5 L Syphilis Serology Non-reactive COVID-19 (RUBIA) 03/26/20 14:50 WBC RBC Hgb Hct MCV MCH MCHC RDW Plt Count MPV Sodium Potassium Chloride Carbon Dioxide Anion Gap BUN Creatinine Est GFR (CKD-EPI)AfAm Est GFR (CKD-EPI)NonAf Random Glucose Calcium Total Bilirubin AST ALT Alkaline Phosphatase Total Protein Albumin Syphilis Serology COVID-19 (RUBIA) Not detected glucose elevation fasting glucose pending low calcium oscal supplement ast elevation repeat ast pending 03/29/20 10:19 Assessment: 03/29/20 10:20 alcohol withdrawal Plan: ativan regiment
[2020-03-29 11:40] LABS: GLUCOSE,FASTING 86 mg/dL (74-106); SGOT/AST 91 U/L (15-37)
[2020-03-29] MEDS: CALCIUM 250MG/VIT-D 125 UNITS 1 COMBO TABLET PO SCH ×2 (13:06→22:22)
[2020-03-29] MEDS ORDERED: BENZOCAINE 28 GM HEMORRHOIDAL OINTMENT PR PRN (19:55)
--- NOTE | 2020-03-29 19:55 | PN ---
S Progress Note Note: C/o "hemorrhoids acting up". States had BM w/ blood streaks and hemorrhoidal pain. Vital Signs 03/29/20 03/29/20 12:39 16:54 Temperature 97.7 F 96.9 F L Pulse Rate 99 H 103 H Respiratory 18 16 Rate Blood Pressure 108/59 L 124/80 O2 Sat by Pulse 100 Oximetry (%) CBC WBC 3.7 K/mm3 (4.0-10.0) L 03/26/20 13:30 RBC 3.73 M/mm3 (4.00-5.60) L 03/26/20 13:30 Hgb 12.1 GM/dL (11.7-16.9) 03/26/20 13:30 Hct 35.3 % (35.4-49) L 03/26/20 13:30 MCV 94.7 fl (80-96) 03/26/20 13:30 MCH 32.5 pg (25.7-33.7) 03/26/20 13:30 MCHC 34.4 g/dl (32.0-35.9) 03/26/20 13:30 RDW 14.9 % (11.9-15.9) 03/26/20 13:30 Plt Count 100 K/MM3 (134-434) L D 03/26/20 13:30 MPV 10.4 fl (7.5-11.1) D 03/26/20 13:30 Assess: Abd soft/NT/BS+ Skin flap/varicosity external rectal opening noted. No blood/bleeding noted. Plan: Hemorrhoidal kieran Instructed to notify staff for increased bleeding or pain.
[2020-03-29] MEDS: SUVOREXANT 10 MG TABLET PO PRN (21:55)
[2020-03-29] MEDS: THIAMINE HCL 100 MG TABLET (FP) PO SCH (22:22)
[2020-03-30] MEDS ORDERED: LORazepam 0.5 MG TABLET PO PRN
[2020-03-30] MEDS ORDERED: LORazepam 0.5 MG TABLET PO ONE (05:00)
[2020-03-30] MEDS ORDERED: chlordiazePOXIDE HCL 10 MG CAPSULE PO SCH (05:00)
[2020-03-30] MEDS: hydrOXYzine PAMOATE 25 MG CAPSULE (FP) PO SCH (05:13)
[2020-03-30 06:07] VITALS: BP 107/68; PULSE 84; TEMP 97.3
--- NOTE | 2020-03-30 08:59 | DS ---
[facility] Detox Discharge Summary Admission Date: 03/26/20 Discharge Date: 03/30/20 - History Present History: Alcohol Dependence Additional Comments: 49 years old male admitted on 03/26/20 for alcohol withdrawal sx management treated with ativan detox regiment seen by psychiatrist nae initiated for insomnia report hemorrhoid getting better no bleeding but itchy no trouble move bowel earlier today mr scott has completed the ativan detox regiment and is tolerated well alert oriented x 3 ambulating with steady gaits cardiac s1s2 regular rate rhythm respiratory clear lung sounds bilaterally on auscultation skin warm and dry Pertinent Past History: time for discharge 35 minutes - Physical Exam Results Vital Signs: Vital Signs Temperature 97.3 F L 03/30/20 06:06 Pulse Rate 84 03/30/20 06:06 Respiratory Rate 18 03/30/20 06:06 Blood Pressure 107/68 03/30/20 06:06 O2 Sat by Pulse Oximetry (%) 98 03/30/20 06:06 Pertinent Admission Physical Exam Findings: alcohol withdrawal Laboratory Tests 03/26/20 03/26/20 03/26/20 13:30 13:30 13:30 WBC 3.7 L RBC 3.73 L Hgb 12.1 Hct 35.3 L MCV 94.7 MCH 32.5 MCHC 34.4 RDW 14.9 Plt Count 100 L D MPV 10.4 D Sodium 138 Potassium 3.7 Chloride 106 Carbon Dioxide 22 Anion Gap 10 BUN 16.5 Creatinine 1.0 Est GFR (CKD-EPI)AfAm 101.98 Est GFR (CKD-EPI)NonAf 87.99 Random Glucose 180 H Fasting Glucose Calcium 7.8 L Total Bilirubin 0.8 AST 226 H ALT 144 H Alkaline Phosphatase 468 H Total Protein 6.3 L Albumin 2.5 L Syphilis Serology Non-reactive COVID-19 (RUBIA) 03/26/20 03/29/20 14:50 08:15 WBC RBC Hgb Hct MCV MCH MCHC RDW Plt Count MPV Sodium Potassium Chloride Carbon Dioxide Anion Gap BUN Creatinine Est GFR (CKD-EPI)AfAm Est GFR (CKD-EPI)NonAf Random Glucose Fasting Glucose 86 Calcium Total Bilirubin AST 91 H ALT Alkaline Phosphatase Total Protein Albumin Syphilis Serology COVID-19 (RUBIA) Not detected ast elevation possible due to alcohol intake subsided from 226 to 91 serum glucose 180 to 86 - Treatment Hospital Course: Detox Protocol Followed, Detoxed Safely, Responded well, Discharged Condition Good, Rehab Referral Accepted Patient has Accepted a Rehab Referral to: [facility] - Medication Discharge Medications: Ambulatory Orders Albuterol Sulfate Inhaler - [Ventolin HFA Inhaler -] 2 inh PO Q4H PRN #1 inhaler 03/29/20 - Diagnosis (1) Alcohol dependence with uncomplicated withdrawal Status: Acute (2) Nicotine dependence Status: Acute Qualifiers: Nicotine product type: cigarettes Substance use status: in withdrawal Qualified Code(s): F17.213 - Nicotine dependence, cigarettes, with withdrawal (3) Substance induced mood disorder Status: Suspected (4) Asthma Status: Chronic Qualifiers: Asthma severity: mild Asthma persistence: intermittent Asthma complication type: uncomplicated Qualified Code(s): J45.20 - Mild intermittent asthma, uncomplicated (5) Hemorrhage Status: Chronic - AMA Did Patient Leave Against Medical Advice: No CIWA Score - CIWA Score Nausea/Vomitin-No Nausea/No Vomiting Muscle Tremors: 1-None Visible, but [place] Anxiety: 0-No Anxiety, at Ease Agitation: 0-Normal Activity Paroxysmal Sweats: No Perspiration Orientation: 0-Oriented Tacttile Disturbances: 0-None Auditory Disturbances: 0-None Visual Disturbances: 0-None Headache: 0-None Present CIWA-Ar Total Score: 1 COWS (PN) - Opiate Withdrawal Resting Pulse: 1= RI 81-100 Sweatin= No chills or Flushing Restless Observation: 0= Sits Still Pupil Size: 0= Normal to Room Light Bone or Joint Aches: 0= None Runny Nose/ Eye Tearin= None GI Upset > 30mins: 0= None Tremor Observation of Outstretched Hands: 1= Tremor [place], Not Seen Yawning Observation: 0= None Anxiety or Irritability: 0= None Goose Flesh Skin: 0=Smooth Skin COWS Score: 2
[2020-03-31] MEDS ORDERED: chlordiazePOXIDE HCL 10 MG CAPSULE PO ONE (05:00)
== END 2020-03-30 08:45 | disposition home or self-care (01) | DRG 774 ==
LOC: YASAS 09:35 → Y3N 12:40
PROVIDERS: ADMIT Allergy & Immunology; ATTEND Allergy & Immunology
PROC: HZ2ZZZZ Detoxification Services for Substance Abuse Treatment (ICD-10-PCS; principal; 2020-03-26)
DX: F10.230 Alcohol dependence with withdrawal, uncomplicated (principal); F14.20 Cocaine dependence, uncomplicated; F12.20 Cannabis dependence, uncomplicated; F17.213 Nicotine dependence, cigarettes, with withdrawal; F19.24 Other psychoactive substance dependence with psychoactive substance-induced mood disorder; F19.282 Other psychoactive substance dependence with psychoactive substance-induced sleep disorder; F31.9 Bipolar disorder, unspecified; J45.20 Mild intermittent asthma, uncomplicated; K64.4 Residual hemorrhoidal skin tags; R74.0 Nonspecific elevation of levels of transaminase and lactic acid dehydrogenase [LDH]; R73.9 Hyperglycemia, unspecified; R94.5 Abnormal results of liver function studies; Z62.810 Personal history of physical and sexual abuse in childhood; Z86.69 Personal history of other diseases of the nervous system and sense organs; Z91.5 Personal history of self-harm
CPT/HCPCS: 36415; 80053; 82947; 84450; 85027; 86780; 93005; 93010; U0003

== ENCOUNTER 2020-05-06 12:28 | Inpatient (IN) | payer OTHER ==
--- NOTE | 2020-05-06 13:36 | BHS.RME ---
Substance Use & Tx History - Substance Use History Alcohol Substance amount: 2 pints hard liquor + beers Frequency of use: Daily Substance route: Oral Date of Last Use: 05/06/20 Cocaine- Powder Substance amount: $60-70 Frequency of use: Daily Substance route: Inhalation (ex: sniffing or snorting) Date of Last Use: 05/05/20 Marijuana/Hashish Substance amount: 1 blunt Frequency of use: Daily Substance route: Smoking Date of Last Use: 05/05/20 Nicotine Substance amount: 1 pack Frequency of use: Daily Substance route: Smoking Date of Last Use: 05/06/20 Physical/Psych/Mental Status - Behavior General Behavior: Increased activity (restlessness, agitation) Eye Contact: Normal - Cooperativeness Cooperativeness: Cooperative - Thinking Thought Processes: Tight, Logical, Goal Directed - Physical Health Problems Is patient presently having any pain?: No Does patient presently have any injuries (include location): No Does patient currently have a fever: No Is patient : No CIWA Nausea/Vomitin-No Nausea/No Vomiting Muscle Tremors: 2 Anxiety: 2 Agitation: 2 Paroxysmal Sweats: No Perspiration Orientation: 0-Oriented Tacttile Disturbances: 0-None Auditory Disturbances: 0-None Visual Disturbances: 0-None Headache: 0-None Present (not yet in withdrawals due to drinking 2 hours prior to coming in) CIWA-Ar Total Score: 6
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
[2020-05-06] MEDS ORDERED: ALBUTEROL SO4 HFA INHALER IH PRN (14:28)
[2020-05-06] MEDS ORDERED: MAGNESIUM HYDROX 2400MG/30ML ORAL SUSPENSION 30 ML CUP PO PRN (14:29)
[2020-05-06] MEDS ORDERED: MAGNESIUM CITRATE 300 ML BOTTLE PO PRN (14:29)
[2020-05-06] MEDS ORDERED: ONDANSETRON *ODT* 4 MG TABLET SL PRN (14:29)
[2020-05-06] MEDS ORDERED: METHOCARBAMOL 500 MG TABLET PO PRN (14:29)
[2020-05-06] MEDS ORDERED: MENTHOL/PHENOL 1 EACH UD MM PRN (14:29)
[2020-05-06] MEDS ORDERED: BISMUTH SUBSALICYLATE 524 MG/30 ML UD PO PRN (14:29)
[2020-05-06] MEDS ORDERED: IBUPROFEN 400 MG TABLET (FP) PO PRN (14:29)
[2020-05-06] MEDS ORDERED: LORazepam 1 MG TABLET PO PRN (14:29)
[2020-05-06] MEDS ORDERED: ACETAMINOPHEN 325 MG TABLET (FP) PO PRN ×2 (14:29)
[2020-05-06] MEDS ORDERED: NICOTINE POLACRILEX 2 MG GUM BUC PRN (14:29)
[2020-05-06] MEDS ORDERED: MAG HYDROX/AL HYDROX/SIMETH 30 ML UNIT-DOSE CUP PO PRN (14:29)
[2020-05-06 15:28] VITALS: BMI 23.6
[2020-05-06] MEDS: NICOTINE 21 MG/24 HOURS TOPICAL PATCH TD SCH (16:00)
[2020-05-06 17:13] LABS: HEMOGLOBIN 13.8 GM/dL (11.7-16.9); MCHC 34.5 g/dl (32.0-35.9); MEAN CELL VOLUME 95.8 fl (80-96); MEAN PLT VOLUME 10.8 fl (7.5-11.1); PLATELET COUNT 162 K/MM3 (134-434); RBC 4.18 M/mm3 (4.00-5.60); RDW 15.4 % (11.9-15.9); WHITE BLOOD COUNT 5.5 K/mm3 (4.0-10.0)
[2020-05-06 17:20] LABS: ALBUMIN 2.9 g/dl (3.4-5.0); BILIRUBIN,TOTAL 2.4 mg/dL (0.2-1); BLOOD UREA NITROGEN 14.7 mg/dL (7-18); CALCIUM 8.3 mg/dL (8.5-10.1); POTASSIUM 3.6 mmol/L (3.5-5.1)
[2020-05-06] MEDS: hydrOXYzine PAMOATE 25 MG CAPSULE (FP) PO SCH ×2 (17:41→23:18)
[2020-05-06] MEDS: LORazepam 2 MG TABLET PO SCH ×2 (17:41→23:18)
[2020-05-06] MEDS: THIAMINE HCL 100 MG TABLET (FP) PO SCH (23:18)
[2020-05-06] MEDS: MELATONIN 5 MG TABLETS PO SCH (23:20)
[2020-05-07] MEDS: hydrOXYzine PAMOATE 25 MG CAPSULE (FP) PO SCH ×5 (05:53→22:29)
[2020-05-07] MEDS: LORazepam 2 MG TABLET PO SCH ×4 (05:53→22:29)
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
[2020-05-07] MEDS: NICOTINE 21 MG/24 HOURS TOPICAL PATCH TD SCH (11:16)
[2020-05-07] MEDS: PRENATAL VITAMINS W/ FOLIC ACID TABLET (FP) PO SCH (11:16)
--- NOTE | 2020-05-07 11:41 | PN ---
S CIWA - CIWA Score Nausea/Vomitin Muscle Tremors: 2 Anxiety: 2 Agitation: 2 Paroxysmal Sweats: No Perspiration Orientation: 0-Oriented Tacttile Disturbances: 1-Very Mild Itch/Numbness Auditory Disturbances: 0-None Visual Disturbances: 0-None Headache: 1-Very Mild CIWA-Ar Total Score: 10 S Progress Note (SOAP) Subjective: alert,irritable,anxious,interrupted sleep,pain in the body and back,tremor,nausea Objective: 05/07/20 11:40 Vital Signs Temperature 97.3 F L 05/07/20 09:25 Pulse Rate 65 05/07/20 09:25 Respiratory Rate 18 05/07/20 09:25 Blood Pressure 123/78 05/07/20 09:25 O2 Sat by Pulse Oximetry (%) 99 05/07/20 09:25 Laboratory Last Values WBC 5.5 K/mm3 (4.0-10.0) 05/06/20 14:30 RBC 4.18 M/mm3 (4.00-5.60) 05/06/20 14:30 Hgb 13.8 GM/dL (11.7-16.9) 05/06/20 14:30 Hct 40.0 % (35.4-49) 05/06/20 14:30 MCV 95.8 fl (80-96) 05/06/20 14:30 MCH 33.0 pg (25.7-33.7) 05/06/20 14:30 MCHC 34.5 g/dl (32.0-35.9) 05/06/20 14:30 RDW 15.4 % (11.9-15.9) 05/06/20 14:30 Plt Count 162 K/MM3 (134-434) D 05/06/20 14:30 MPV 10.8 fl (7.5-11.1) 05/06/20 14:30 Sodium 136 mmol/L (136-145) 05/06/20 14:30 Potassium 3.6 mmol/L (3.5-5.1) 05/06/20 14:30 Chloride 100 mmol/L (98-107) 05/06/20 14:30 Carbon Dioxide 23 mmol/L (21-32) 05/06/20 14:30 Anion Gap 13 MMOL/L (8-16) 05/06/20 14:30 BUN 14.7 mg/dL (7-18) 05/06/20 14:30 Creatinine 1.0 mg/dL (0.55-1.3) 05/06/20 14:30 Est GFR (CKD-EPI)AfAm 101.98 05/06/20 14:30 Est GFR (CKD-EPI)NonAf 87.99 05/06/20 14:30 Random Glucose 163 mg/dL (74-106) H 05/06/20 14:30 Calcium 8.3 mg/dL (8.5-10.1) L 05/06/20 14:30 Total Bilirubin 2.4 mg/dL (0.2-1) H 05/06/20 14:30 AST 380 U/L (15-37) H 05/06/20 14:30 ALT 217 U/L (13-61) H 05/06/20 14:30 Alkaline Phosphatase 425 U/L (45-117) H 05/06/20 14:30 Total Protein 7.0 g/dl (6.4-8.2) 05/06/20 14:30 Albumin 2.9 g/dl (3.4-5.0) L 05/06/20 14:30 Syphilis Serology Non-reactive (NONREACTIVE) 05/06/20 14:30 Assessment: 05/07/20 11:40 withdrawal symptom Plan: continue detox ativan regimen,encourage oral fluid,repeat cmp,fasting glucose,inr in am
[2020-05-07] MEDS: QUEtiapine FUMARATE 100 MG TABLET (FP) PO SCH (22:29)
[2020-05-07] MEDS: THIAMINE HCL 100 MG TABLET (FP) PO SCH (22:29)
[2020-05-07] MEDS: MELATONIN 5 MG TABLETS PO SCH (22:30)
[2020-05-08] MEDS: LORazepam 1 MG TABLET PO SCH ×4 (08:29→22:20)
[2020-05-08] MEDS: hydrOXYzine PAMOATE 25 MG CAPSULE (FP) PO SCH ×5 (08:29→22:21)
--- NOTE | 2020-05-08 10:24 | PN ---
S CIWA - CIWA Score Nausea/Vomitin-No Nausea/No Vomiting Muscle Tremors: None Anxiety: 3 Agitation: 0-Normal Activity Paroxysmal Sweats: 3 Orientation: 0-Oriented Tacttile Disturbances: 0-None Auditory Disturbances: 0-None Visual Disturbances: 0-None Headache: 2-Mild CIWA-Ar Total Score: 8 S Progress Note (SOAP) Subjective: c/o sweats, anxiety, headache. Objective: 05/08/20 10:19 Vital Signs 05/08/20 05:39 Temperature 98.1 F Pulse Rate 95 H Respiratory 16 Rate Blood Pressure 110/67 O2 Sat by Pulse 99 Oximetry (%) Laboratory Last Values WBC 5.5 K/mm3 (4.0-10.0) 05/06/20 14:30 RBC 4.18 M/mm3 (4.00-5.60) 05/06/20 14:30 Hgb 13.8 GM/dL (11.7-16.9) 05/06/20 14:30 Hct 40.0 % (35.4-49) 05/06/20 14:30 MCV 95.8 fl (80-96) 05/06/20 14:30 MCH 33.0 pg (25.7-33.7) 05/06/20 14:30 MCHC 34.5 g/dl (32.0-35.9) 05/06/20 14:30 RDW 15.4 % (11.9-15.9) 05/06/20 14:30 Plt Count 162 K/MM3 (134-434) D 05/06/20 14:30 MPV 10.8 fl (7.5-11.1) 05/06/20 14:30 Sodium 136 mmol/L (136-145) 05/06/20 14:30 Potassium 3.6 mmol/L (3.5-5.1) 05/06/20 14:30 Chloride 100 mmol/L (98-107) 05/06/20 14:30 Carbon Dioxide 23 mmol/L (21-32) 05/06/20 14:30 Anion Gap 13 MMOL/L (8-16) 05/06/20 14:30 BUN 14.7 mg/dL (7-18) 05/06/20 14:30 Creatinine 1.0 mg/dL (0.55-1.3) 05/06/20 14:30 Est GFR (CKD-EPI)AfAm 101.98 05/06/20 14:30 Est GFR (CKD-EPI)NonAf 87.99 05/06/20 14:30 Random Glucose 163 mg/dL (74-106) H 05/06/20 14:30 Calcium 8.3 mg/dL (8.5-10.1) L 05/06/20 14:30 Total Bilirubin 2.4 mg/dL (0.2-1) H 05/06/20 14:30 AST 380 U/L (15-37) H 05/06/20 14:30 ALT 217 U/L (13-61) H 05/06/20 14:30 Alkaline Phosphatase 425 U/L (45-117) H 05/06/20 14:30 Total Protein 7.0 g/dl (6.4-8.2) 05/06/20 14:30 Albumin 2.9 g/dl (3.4-5.0) L 05/06/20 14:30 Syphilis Serology Non-reactive (NONREACTIVE) 05/06/20 14:30 COVID-19 (RUBIA) Not detected (Not Detected) 05/06/20 15:45 Labs noted. Assessment: AOX3 and in no acute respiratory distress. Full ROM, ambulating in the unit. Withdrawal symptoms. Plan: continue detox.
[2020-05-08] MEDS: PRENATAL VITAMINS W/ FOLIC ACID TABLET (FP) PO SCH (10:41)
[2020-05-08] MEDS: NICOTINE 21 MG/24 HOURS TOPICAL PATCH TD SCH (10:41)
[2020-05-08] MEDS: MELATONIN 5 MG TABLETS PO SCH (22:21)
[2020-05-08] MEDS: QUEtiapine FUMARATE 100 MG TABLET (FP) PO SCH (22:21)
[2020-05-08] MEDS: THIAMINE HCL 100 MG TABLET (FP) PO SCH (22:21)
[2020-05-09] MEDS ORDERED: LORazepam 0.5 MG TABLET PO PRN
[2020-05-09] MEDS: hydrOXYzine PAMOATE 25 MG CAPSULE (FP) PO SCH ×5 (07:12→22:08)
[2020-05-09] MEDS: LORazepam 0.5 MG TABLET PO SCH ×4 (07:12→22:08)
--- NOTE | 2020-05-09 10:34 | PN ---
[facility] CIWA - CIWA Score Nausea/Vomitin-No Nausea/No Vomiting Muscle Tremors: 2 Anxiety: 2 Agitation: 0-Normal Activity Paroxysmal Sweats: No Perspiration Orientation: 0-Oriented Tacttile Disturbances: 0-None Auditory Disturbances: 0-None Visual Disturbances: 0-None Headache: 2-Mild CIWA-Ar Total Score: 6 [facility] Progress Note (SOAP) Subjective: PATIENT ADMITTED FOR ALCOHOL WITHDRAWAL SX AND DETOX. ROS: C/O ANXIETY, MILD SHAKES, HEADACHE AND SLEEP DISTURBANCE Objective: 05/09/20 10:32 Vital Signs Temperature 97.6 F 05/09/20 09:05 Pulse Rate 109 H 05/09/20 09:05 Respiratory Rate 18 05/09/20 09:05 Blood Pressure 107/75 05/09/20 09:05 O2 Sat by Pulse Oximetry (%) 98 05/09/20 09:05 PE ALERT AND ORIENTED X 3 SKIN WARM, DRY +PERRLA,EOMS INTACT BL EXT FULL ROM, NO VISIBLE EDEMA MILD TREMORS ANXIOUS Assessment: 05/09/20 10:33 ETOH WITHDRAWAL SX Plan: PATIENT TO CONTINUE DETOX ORDERED ENCOURAGED ORAL FLUIDS MONITOR CLINICALLY FOR D/C IN AM
[2020-05-09] MEDS: PRENATAL VITAMINS W/ FOLIC ACID TABLET (FP) PO SCH (10:47)
[2020-05-09] MEDS: NICOTINE 21 MG/24 HOURS TOPICAL PATCH TD SCH (10:47)
[2020-05-09] MEDS ORDERED: MASKS NR ONE (17:43)
[2020-05-09] MEDS: THIAMINE HCL 100 MG TABLET (FP) PO SCH (22:08)
[2020-05-09] MEDS: MELATONIN 5 MG TABLETS PO SCH (22:08)
[2020-05-09] MEDS: QUEtiapine FUMARATE 100 MG TABLET (FP) PO SCH (22:08)
[2020-05-10] MEDS ORDERED: LORazepam 0.5 MG TABLET PO ONE (05:00)
[2020-05-10] MEDS: hydrOXYzine PAMOATE 25 MG CAPSULE (FP) PO SCH (05:44)
--- NOTE | 2020-05-10 09:42 | PN ---
[facility] CIWA - CIWA Score Nausea/Vomitin-No Nausea/No Vomiting Muscle Tremors: None Anxiety: 1-Mildly Anxious Agitation: 0-Normal Activity Paroxysmal Sweats: No Perspiration Orientation: 0-Oriented Tacttile Disturbances: 0-None Auditory Disturbances: 0-None Visual Disturbances: 0-None Headache: 0-None Present CIWA-Ar Total Score: 1 S Progress Note (SOAP) Subjective: alert,no complaint Objective: 05/10/20 09:40 Vital Signs Temperature 97.1 F L 05/10/20 05:30 Pulse Rate 79 05/10/20 05:30 Respiratory Rate 20 05/10/20 05:30 Blood Pressure 115/65 05/10/20 05:30 O2 Sat by Pulse Oximetry (%) 99 05/10/20 05:30 Assessment: 05/10/20 09:40 detox completed,no withdrawal symptom Plan: discharge to day,follow up with out patient program and aa meeting
--- NOTE | 2020-05-10 09:44 | DS ---
[facility] Detox Discharge Summary Admission Date: 05/06/20 Discharge Date: 05/10/20 - History Present History: Alcohol Dependence, Cocaine Dependence Additional Comments: alert,oriented x 3 ambulation on the unit lung clear bilaterally on auscultation abdomen soft,no pain,no tenderness no edema of legs detox completed,no withdrawal symptom stable for discharge patient declined rehab patient was told of elevated liver enzymes and hyperglycemia,advise to stop drinking and life style diet modification,no sugar will follow up with own medical provider follow up with out patient program and AA meeting Pertinent Past History: asthma nicotine dependence bipolar disorder - Physical Exam Results Vital Signs: Vital Signs Temperature 97.1 F L 05/10/20 05:30 Pulse Rate 79 05/10/20 05:30 Respiratory Rate 20 05/10/20 05:30 Blood Pressure 115/65 05/10/20 05:30 O2 Sat by Pulse Oximetry (%) 99 05/10/20 05:30 Pertinent Admission Physical Exam Findings: withdrawal signs and symptom Laboratory Last Values WBC 5.5 K/mm3 (4.0-10.0) 05/06/20 14:30 RBC 4.18 M/mm3 (4.00-5.60) 05/06/20 14:30 Hgb 13.8 GM/dL (11.7-16.9) 05/06/20 14:30 Hct 40.0 % (35.4-49) 05/06/20 14:30 MCV 95.8 fl (80-96) 05/06/20 14:30 MCH 33.0 pg (25.7-33.7) 05/06/20 14:30 MCHC 34.5 g/dl (32.0-35.9) 05/06/20 14:30 RDW 15.4 % (11.9-15.9) 05/06/20 14:30 Plt Count 162 K/MM3 (134-434) D 05/06/20 14:30 MPV 10.8 fl (7.5-11.1) 05/06/20 14:30 Sodium 136 mmol/L (136-145) 05/06/20 14:30 Potassium 3.6 mmol/L (3.5-5.1) 05/06/20 14:30 Chloride 100 mmol/L (98-107) 05/06/20 14:30 Carbon Dioxide 23 mmol/L (21-32) 05/06/20 14:30 Anion Gap 13 MMOL/L (8-16) 05/06/20 14:30 BUN 14.7 mg/dL (7-18) 05/06/20 14:30 Creatinine 1.0 mg/dL (0.55-1.3) 05/06/20 14:30 Est GFR (CKD-EPI)AfAm 101.98 05/06/20 14:30 Est GFR (CKD-EPI)NonAf 87.99 05/06/20 14:30 Random Glucose 163 mg/dL (74-106) H 05/06/20 14:30 Calcium 8.3 mg/dL (8.5-10.1) L 05/06/20 14:30 Total Bilirubin 2.4 mg/dL (0.2-1) H 05/06/20 14:30 AST 380 U/L (15-37) H 05/06/20 14:30 ALT 217 U/L (13-61) H 05/06/20 14:30 Alkaline Phosphatase 425 U/L (45-117) H 05/06/20 14:30 Total Protein 7.0 g/dl (6.4-8.2) 05/06/20 14:30 Albumin 2.9 g/dl (3.4-5.0) L 05/06/20 14:30 Syphilis Serology Non-reactive (NONREACTIVE) 05/06/20 14:30 COVID-19 (RUBIA) Not detected (Not Detected) 05/06/20 15:45 - Treatment Hospital Course: Detox Protocol Followed, Detoxed Safely, Responded well, Discharged Condition Good Patient has Accepted a Rehab Referral to: declined - Medication Discharge Medications: Ambulatory Orders Albuterol Sulfate Inhaler - [Ventolin HFA Inhaler -] 2 inh PO Q4H PRN #1 inhaler 05/09/20 Quetiapine Fumarate [Seroquel -] 100 mg PO HS #30 tablet 05/10/20 - Diagnosis (1) Alcohol dependence with uncomplicated withdrawal Current Visit: Yes Status: Acute (2) Liver enzyme elevation Current Visit: Yes Status: Acute (3) Cocaine dependence, uncomplicated Current Visit: Yes Status: Acute (4) Nicotine dependence Current Visit: Yes Status: Acute Qualifiers: Nicotine product type: cigarettes Substance use status: in withdrawal Qualified Code(s): F17.213 - Nicotine dependence, cigarettes, with withdrawal (5) Asthma Current Visit: Yes Status: Chronic Qualifiers: Asthma severity: mild Asthma persistence: intermittent Asthma complication type: uncomplicated Qualified Code(s): J45.20 - Mild intermittent asthma, uncomplicated (6) Bipolar disorder Current Visit: Yes Status: Chronic Qualifiers: Active/Remission status: in partial remission Most recent bipolar episode type: mixed Qualified Code(s): F31.77 - Bipolar disorder, in partial remission, most recent episode mixed (7) Hyperglycemia Current Visit: Yes Status: Acute - AMA Did Patient Leave Against Medical Advice: No
--- NOTE | 2020-05-10 09:53 | PN ---
[facility] Progress Note Note: Patient is discharged today. Script for 30 days supply of Seroquel 100 mg/hs is electronically transmitted to [facility], [address] [place], [place] [address] , [place] [address]
[2020-05-10 10:18] VITALS: BP 125/81; PULSE 111; TEMP 96.9
== END 2020-05-10 09:27 | disposition home or self-care (01) | DRG 774 ==
LOC: YASAS 12:28 → Y6N 15:32
PROVIDERS: ADMIT Allergy & Immunology; ATTEND Allergy & Immunology
PROC: HZ2ZZZZ Detoxification Services for Substance Abuse Treatment (ICD-10-PCS; principal; 2020-05-06)
DX: F10.230 Alcohol dependence with withdrawal, uncomplicated (principal); F14.20 Cocaine dependence, uncomplicated; F12.10 Cannabis abuse, uncomplicated; F17.213 Nicotine dependence, cigarettes, with withdrawal; F31.77 Bipolar disorder, in partial remission, most recent episode mixed; F19.282 Other psychoactive substance dependence with psychoactive substance-induced sleep disorder; J45.20 Mild intermittent asthma, uncomplicated; R94.5 Abnormal results of liver function studies; R73.9 Hyperglycemia, unspecified; Z86.69 Personal history of other diseases of the nervous system and sense organs; Z91.5 Personal history of self-harm
CPT/HCPCS: 36415; 80053; 85027; 86780; U0003

== ENCOUNTER 2020-06-23 17:38 | Inpatient (IN) | payer OTHER ==
--- NOTE | 2020-06-23 19:27 | BHS.RME ---
Substance Use & Tx History - Substance Use History Alcohol Substance amount: 3-4 pints & beers Frequency of use: Daily Substance route: Oral Cocaine-Crack Substance amount: 200$ Frequency of use: Daily Cannabis Substance amount: occasional Frequency of use: Once a month - Last Treatment Where was last treatment: Detox Physical/Psych/Mental Status - Behavior Eye Contact: Normal - Cooperativeness Cooperativeness: Cooperative - Thinking Thought Processes: Logical - Physical Health Problems Is patient presently having any pain?: Yes (bodyaches) Does patient presently have any injuries (include location): No Does patient currently have a fever: No CIWA Nausea/Vomitin-No Nausea/No Vomiting Muscle Tremors: None Anxiety: 0-No Anxiety, at Ease Agitation: 0-Normal Activity Paroxysmal Sweats: No Perspiration Orientation: 0-Oriented Tacttile Disturbances: 0-None Auditory Disturbances: 0-None Visual Disturbances: 0-None Headache: 0-None Present CIWA-Ar Total Score: 0
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
[2020-06-23] MEDS ORDERED: IBUPROFEN 400 MG TABLET (FP) PO PRN (19:39)
[2020-06-23] MEDS ORDERED: NICOTINE POLACRILEX 2 MG GUM BUC PRN (19:39)
[2020-06-23] MEDS ORDERED: MAGNESIUM CITRATE 300 ML BOTTLE PO PRN (19:39)
[2020-06-23] MEDS ORDERED: ACETAMINOPHEN 325 MG TABLET (FP) PO PRN ×2 (19:39)
[2020-06-23] MEDS ORDERED: MENTHOL/PHENOL 1 EACH UD MM PRN (19:39)
[2020-06-23] MEDS ORDERED: ONDANSETRON *ODT* 4 MG TABLET SL PRN (19:39)
[2020-06-23] MEDS ORDERED: ALBUTEROL SO4 HFA INHALER IH PRN (19:39)
[2020-06-23] MEDS ORDERED: MAGNESIUM HYDROX 2400MG/30ML ORAL SUSPENSION 30 ML CUP PO PRN (19:39)
[2020-06-23] MEDS ORDERED: BISMUTH SUBSALICYLATE 524 MG/30 ML UD PO PRN (19:39)
[2020-06-23] MEDS ORDERED: diazePAM 5 MG TABLET PO PRN (19:41)
[2020-06-23] MEDS ORDERED: diazePAM 5 MG TABLET PO ONE (19:41)
[2020-06-23 19:44] VITALS: BMI 23.6
[2020-06-23] MEDS: THIAMINE HCL 100 MG TABLET (FP) PO SCH (21:23)
[2020-06-23] MEDS: MELATONIN 5 MG TABLETS PO SCH (21:24)
[2020-06-24] MEDS: diazePAM 5 MG TABLET PO SCH ×5 (00:05→22:37)
[2020-06-24] MEDS: MAG HYDROX/AL HYDROX/SIMETH 30 ML UNIT-DOSE CUP PO PRN (00:05)
[2020-06-24] MEDS: METHOCARBAMOL 500 MG TABLET PO PRN (06:02)
[2020-06-24] MEDS: PRENATAL VITAMINS W/ FOLIC ACID TABLET (FP) PO SCH (10:18)
[2020-06-24] MEDS ORDERED: SIMETHICONE 80 MG TAB.CHEW (FP) PO PRN (10:25)
[2020-06-24 10:51] LABS: HEMATOCRIT 31.1 % (35.4-49); HEMOGLOBIN 10.7 GM/dL (11.7-16.9); MCH 30.5 pg (25.7-33.7); MCHC 34.3 g/dl (32.0-35.9); MEAN CELL VOLUME 88.8 fl (80-96); MEAN PLT VOLUME 10.1 fl (7.5-11.1); PLATELET COUNT 63 K/MM3 (134-434); RDW 16.9 % (11.9-15.9); WHITE BLOOD COUNT 4.6 K/mm3 (4.0-10.0)
[2020-06-24 11:06] LABS: POTASSIUM 3.7 mmol/L (3.5-5.1)
[2020-06-24 11:16] LABS: ALBUMIN 2.2 g/dl (3.4-5.0); BLOOD UREA NITROGEN 15.4 mg/dL (7-18); CALCIUM 8.4 mg/dL (8.5-10.1); CREATININE 0.8 mg/dL (0.55-1.3)
[2020-06-24 11:17] LABS: BILIRUBIN,TOTAL 1.3 mg/dL (0.2-1)
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
--- NOTE | 2020-06-24 13:37 | PN ---
S CIWA - CIWA Score Nausea/Vomitin-No Nausea/No Vomiting Muscle Tremors: 3 Anxiety: 2 Agitation: 3 Paroxysmal Sweats: 2 Orientation: 0-Oriented Tacttile Disturbances: 0-None Auditory Disturbances: 0-None Visual Disturbances: 0-None Headache: 0-None Present CIWA-Ar Total Score: 10 S Progress Note (SOAP) Subjective: constipation sweats restless interrupted sleep Objective: 06/24/20 13:36 Vital Signs Temperature 97.5 F L 06/24/20 13:20 Pulse Rate 88 06/24/20 13:20 Respiratory Rate 06/24/20 13:20 Blood Pressure 129/65 06/24/20 13:20 O2 Sat by Pulse Oximetry (%) 99 06/24/20 13:20 Laboratory Tests 06/24/20 06/24/20 06/24/20 07:50 07:50 07:50 WBC 4.6 RBC 3.50 L Hgb 10.7 L Hct 31.1 L D MCV 88.8 D MCH 30.5 MCHC 34.3 RDW 16.9 H Plt Count 63 L D MPV 10.1 Sodium 136 Potassium 3.7 Chloride 98 Carbon Dioxide 30 Anion Gap 8 BUN 15.4 Creatinine 0.8 Est GFR (CKD-EPI)AfAm 121.57 Est GFR (CKD-EPI)NonAf 104.89 Random Glucose 117 H Calcium 8.4 L Total Bilirubin 1.3 H AST 183 H ALT 84 H Alkaline Phosphatase 720 H Total Protein 6.0 L Albumin 2.2 L Syphilis Serology Non-reactive labs noted elevated liver enzymes will repeat labs aaox3 ambulating no acute distress Assessment: 06/24/20 13:36 withdrawals Plan: continue detox citroma prn increase fluids colace TID
[2020-06-24] MEDS: DOCUSATE SODIUM 100 MG CAPSULE (FP) PO SCH ×2 (14:42→22:37)
[2020-06-24] MEDS: hydrOXYzine PAMOATE 25 MG CAPSULE (FP) PO PRN ×2 (17:55→22:38)
[2020-06-24] MEDS: MELATONIN 5 MG TABLETS PO SCH (22:37)
[2020-06-24] MEDS: QUEtiapine FUMARATE 100 MG TABLET (FP) PO SCH (22:37)
[2020-06-24] MEDS: THIAMINE HCL 100 MG TABLET (FP) PO SCH (22:37)
[2020-06-25] MEDS: diazePAM 5 MG TABLET PO SCH ×3 (06:26→22:28)
[2020-06-25] MEDS: DOCUSATE SODIUM 100 MG CAPSULE (FP) PO SCH ×3 (06:26→22:27)
[2020-06-25] MEDS: METHOCARBAMOL 500 MG TABLET PO PRN ×2 (10:44→22:27)
[2020-06-25] MEDS: PRENATAL VITAMINS W/ FOLIC ACID TABLET (FP) PO SCH (10:45)
--- NOTE | 2020-06-25 14:14 | PN ---
S CIWA - CIWA Score Nausea/Vomitin-No Nausea/No Vomiting Muscle Tremors: 3 Anxiety: 1-Mildly Anxious Agitation: 2 Paroxysmal Sweats: 2 Orientation: 0-Oriented Tacttile Disturbances: 0-None Auditory Disturbances: 0-None Visual Disturbances: 0-None Headache: 0-None Present CIWA-Ar Total Score: 8 BHS Progress Note (SOAP) Subjective: sweats my stomach is feeling better agitation Objective: 06/25/20 14:14 Vital Signs Temperature 98.0 F 06/25/20 08:44 Pulse Rate 109 H 06/25/20 08:44 Respiratory Rate 06/25/20 08:44 Blood Pressure 135/85 06/25/20 08:44 O2 Sat by Pulse Oximetry (%) 97 06/25/20 08:44 Laboratory Tests 06/23/20 06/24/20 06/24/20 23:30 07:50 07:50 WBC 4.6 RBC 3.50 L Hgb 10.7 L Hct 31.1 L D MCV 88.8 D MCH 30.5 MCHC 34.3 RDW 16.9 H Plt Count 63 L D MPV 10.1 Sodium Potassium Chloride Carbon Dioxide Anion Gap BUN Creatinine Est GFR (CKD-EPI)AfAm Est GFR (CKD-EPI)NonAf Random Glucose Calcium Total Bilirubin AST ALT Alkaline Phosphatase Total Protein Albumin Syphilis Serology Non-reactive COVID-19 (RUBIA) Not detected 06/24/20 07:50 WBC RBC Hgb Hct MCV MCH MCHC RDW Plt Count MPV Sodium 136 Potassium 3.7 Chloride 98 Carbon Dioxide 30 Anion Gap 8 BUN 15.4 Creatinine 0.8 Est GFR (CKD-EPI)AfAm 121.57 Est GFR (CKD-EPI)NonAf 104.89 Random Glucose 117 H Calcium 8.4 L Total Bilirubin 1.3 H AST 183 H ALT 84 H Alkaline Phosphatase 720 H Total Protein 6.0 L Albumin 2.2 L Syphilis Serology COVID-19 (RUBIA) labs noted aaox3 ambulating no acute distress elevated ast/alt; d/c Tylenol repeat labs iron supplement ordered Assessment: 06/25/20 14:20 withdrawals Plan: continue detox
--- NOTE | 2020-06-25 14:16 | PN ---
[facility] CIWA - CIWA Score Nausea/Vomitin-No Nausea/No Vomiting Muscle Tremors: 2 Anxiety: 2 Agitation: 2 Paroxysmal Sweats: 1-Minimal Palms Moist Orientation: 0-Oriented Tacttile Disturbances: 0-None Auditory Disturbances: 0-None Visual Disturbances: 0-None Headache: 0-None Present CIWA-Ar Total Score: 7
[2020-06-25] MEDS: FERROUS SO4 325 MG TABLET (FP) PO SCH (17:35)
[2020-06-25] MEDS: hydrOXYzine PAMOATE 25 MG CAPSULE (FP) PO PRN ×2 (17:36→22:27)
[2020-06-25] MEDS: QUEtiapine FUMARATE 100 MG TABLET (FP) PO SCH (22:27)
[2020-06-25] MEDS: MELATONIN 5 MG TABLETS PO SCH (22:28)
[2020-06-25] MEDS: THIAMINE HCL 100 MG TABLET (FP) PO SCH (22:28)
[2020-06-26] MEDS: FERROUS SO4 325 MG TABLET (FP) PO SCH ×3 (07:18→17:51)
[2020-06-26] MEDS: diazePAM 5 MG TABLET PO SCH ×2 (07:18→17:51)
[2020-06-26] MEDS: DOCUSATE SODIUM 100 MG CAPSULE (FP) PO SCH ×3 (07:18→22:14)
[2020-06-26] MEDS: METHOCARBAMOL 500 MG TABLET PO PRN ×2 (10:24→17:54)
[2020-06-26] MEDS: PRENATAL VITAMINS W/ FOLIC ACID TABLET (FP) PO SCH (10:24)
[2020-06-26] MEDS: hydrOXYzine PAMOATE 25 MG CAPSULE (FP) PO PRN ×3 (10:24→22:16)
[2020-06-26] MEDS: MAG HYDROX/AL HYDROX/SIMETH 30 ML UNIT-DOSE CUP PO PRN (10:25)
[2020-06-26 11:47] LABS: HEMATOCRIT 30.9 % (35.4-49); HEMOGLOBIN 10.4 GM/dL (11.7-16.9); MCHC 33.8 g/dl (32.0-35.9); MEAN CELL VOLUME 88.9 fl (80-96); MEAN PLT VOLUME 10.3 fl (7.5-11.1); PLATELET COUNT 37 K/MM3 (134-434); RBC 3.47 M/mm3 (4.00-5.60); RDW 17.8 % (11.9-15.9); WHITE BLOOD COUNT 6.2 K/mm3 (4.0-10.0)
[2020-06-26 12:00] LABS: ALBUMIN 2.2 g/dl (3.4-5.0); BILIRUBIN,TOTAL 1.2 mg/dL (0.2-1); BLOOD UREA NITROGEN 9.8 mg/dL (7-18); CALCIUM 8.4 mg/dL (8.5-10.1); CREATININE 0.7 mg/dL (0.55-1.3); POTASSIUM 3.3 mmol/L (3.5-5.1); TOT PROT 6.4 g/dl (6.4-8.2)
[2020-06-26 13:09] LABS: ANISOCYTOSIS 1+; MACROCYTOSIS 2+; PLATELET ESTIMATE DECREASED; TARGET CELLS 1+
[2020-06-26] MEDS ORDERED: POTASSIUM CHLORIDE TABS 20 MEQ TABLET.ER (FP) PO ONE (17:01)
--- NOTE | 2020-06-26 17:03 | PN ---
S CIWA - CIWA Score Nausea/Vomitin-No Nausea/No Vomiting Muscle Tremors: None Anxiety: 2 Agitation: 1-Slight > Activity Paroxysmal Sweats: 3 Orientation: 0-Oriented Tacttile Disturbances: 0-None Auditory Disturbances: 0-None Visual Disturbances: 1-Very Mild Sensitivity Headache: 0-None Present CIWA-Ar Total Score: 7 BHS Progress Note (SOAP) Subjective: Anxious, Sweating. Objective: Patient A & O X 3, Observed Ambulating on Detox Unit Unassisted. In No Acute Distress. 06/26/20 17:03 Vital Signs Temperature 98.1 F 06/26/20 12:41 Pulse Rate 102 H 06/26/20 12:41 Respiratory Rate 18 06/26/20 12:41 Blood Pressure 135/82 06/26/20 12:41 O2 Sat by Pulse Oximetry (%) 98 06/26/20 12:41 Laboratory Tests 06/23/20 06/24/20 06/24/20 23:30 07:50 07:50 WBC 4.6 RBC 3.50 L Hgb 10.7 L Hct 31.1 L D MCV 88.8 D MCH 30.5 MCHC 34.3 RDW 16.9 H Plt Count 63 L D MPV 10.1 Neutrophils % Neutrophils % (Manual) Band Neutrophils % Lymphocytes % Lymphocytes % (Manual) Monocytes % (Manual) Eosinophils % (Manual) Basophils % (Manual) Myelocytes % (Man) Promyelocytes % (Man) Blast Cells % (Manual) Nucleated RBC % Metamyelocytes Hypochromia Platelet Estimate Polychromasia Poikilocytosis Anisocytosis Microcytosis Macrocytosis Target Cells Sodium Potassium Chloride Carbon Dioxide Anion Gap BUN Creatinine Est GFR (CKD-EPI)AfAm Est GFR (CKD-EPI)NonAf Random Glucose Calcium Total Bilirubin AST ALT Alkaline Phosphatase Total Protein Albumin Syphilis Serology Non-reactive COVID-19 (RUBIA) Not detected 06/24/20 06/26/20 06/26/20 07:50 07:50 07:50 WBC 6.2 RBC 3.47 L Hgb 10.4 L Hct 30.9 L MCV 88.9 MCH 30.0 MCHC 33.8 RDW 17.8 H Plt Count 37 L D MPV 10.3 Neutrophils % No Result Required. Neutrophils % (Manual) 73.0 Band Neutrophils % 0.0 Lymphocytes % No Result Required. Lymphocytes % (Manual) 19.0 Monocytes % (Manual) 6 Eosinophils % (Manual) 2.0 Basophils % (Manual) 0.0 Myelocytes % (Man) 0 Promyelocytes % (Man) 0 Blast Cells % (Manual) 0 Nucleated RBC % 0 Metamyelocytes 0 Hypochromia 0 Platelet Estimate Decreased Polychromasia 0 Poikilocytosis 0 Anisocytosis 1+ Microcytosis 0 Macrocytosis 2+ Target Cells 1+ Sodium 136 136 Potassium 3.7 3.3 L Chloride 98 103 Carbon Dioxide 30 27 Anion Gap 8 7 L BUN 15.4 9.8 Creatinine 0.8 0.7 Est GFR (CKD-EPI)AfAm 121.57 128.43 Est GFR (CKD-EPI)NonAf 104.89 110.81 Random Glucose 117 H 155 H Calcium 8.4 L 8.4 L Total Bilirubin 1.3 H 1.2 H AST 183 H 104 H ALT 84 H 70 H Alkaline Phosphatase 720 H 675 H Total Protein 6.0 L 6.4 Albumin 2.2 L 2.2 L Syphilis Serology COVID-19 (RUBIA) Lab Results noted. Results of Repeat CBC and CMP noted. Minimal change in RBC, HCT, and in HGB noted. Moderate reductions in AST, ALT and in AP noted. Glucose level noted to be elevated on Admission and Repeat Laboratory Assessment. Low K level (3.3) noted on repeat CMP. 06/26/20 17:04 Assessment: 06/26/20 17:06 WITHDRAWAL SYMPTOMS. ANEMIA. ELEVATED AST, ALT, AND AP LEVELS. HYPERGLYCEMIA. HYPOKALEMIA. 06/26/20 17:06 Plan: Continue Detox. Increase Daily Oral Water Intake. K-Dur, 40 meq orally X 1 dose ordered for low K level noted of Repeat CMP. Patient advised to follow-up with SOCIAL MEDIA ANALYST after Discharge from Detox for general medical assessment and for elevated liver enzymes and anemia noted on detox admission and repeat laboratory assessments. Patient verbalized understanding of recommendation. Copies of results of all labs drawn while admitted for detox given to patient at time of discharge from detox unit. Patient scheduled for D/C from detox unit tomorrow pending pre-discharge medical evaluation by covering medical provider.
[2020-06-26] MEDS: QUEtiapine FUMARATE 100 MG TABLET (FP) PO SCH (22:14)
[2020-06-26] MEDS: MELATONIN 5 MG TABLETS PO SCH (22:14)
[2020-06-26] MEDS: THIAMINE HCL 100 MG TABLET (FP) PO SCH (22:14)
[2020-06-27] MEDS ORDERED: diazePAM 5 MG TABLET PO ONE (06:00)
[2020-06-27] MEDS: FERROUS SO4 325 MG TABLET (FP) PO SCH (07:34)
[2020-06-27] MEDS: DOCUSATE SODIUM 100 MG CAPSULE (FP) PO SCH (07:34)
[2020-06-27 09:38] VITALS: BP 131/76; PULSE 89; TEMP 98.1
--- NOTE | 2020-06-27 09:49 | DS ---
[facility] Detox Discharge Summary Admission Date: 06/23/20 Discharge Date: 06/27/20 - History Present History: Alcohol Dependence, Cannabis Dependence, Cocaine Dependence Additional Comments: Alert and oriented x3, in no acute respiratory distress. Full ROM, ambulatory in the unit without assistance. Skin warm to touch. Detox protocol completed without any complications, stable for discharge this morning. Pertinent Past History: History of asthma, alcohol withdrawal seizure, alcohol, cocaine,cannabis and nicotine use disorder. - Physical Exam Results Vital Signs: Vital Signs Temperature 98.1 F 06/27/20 09:38 Pulse Rate 89 06/27/20 09:38 Respiratory Rate 16 06/27/20 09:38 Blood Pressure 131/76 06/27/20 09:38 O2 Sat by Pulse Oximetry (%) 96 06/27/20 05:54 Vital Signs 06/27/20 06/27/20 05:54 09:38 Temperature 97.5 F L 98.1 F Pulse Rate 92 H 89 Respiratory 16 16 Rate Blood Pressure 118/75 131/76 O2 Sat by Pulse 96 Oximetry (%) Laboratory Last Values WBC 6.2 K/mm3 (4.0-10.0) 06/26/20 07:50 RBC 3.47 M/mm3 (4.00-5.60) L 06/26/20 07:50 Hgb 10.4 GM/dL (11.7-16.9) L 06/26/20 07:50 Hct 30.9 % (35.4-49) L 06/26/20 07:50 MCV 88.9 fl (80-96) 06/26/20 07:50 MCH 30.0 pg (25.7-33.7) 06/26/20 07:50 MCHC 33.8 g/dl (32.0-35.9) 06/26/20 07:50 RDW 17.8 % (11.9-15.9) H 06/26/20 07:50 Plt Count 37 K/MM3 (134-434) L D 06/26/20 07:50 MPV 10.3 fl (7.5-11.1) 06/26/20 07:50 Neutrophils % No Result Required. 06/26/20 07:50 Neutrophils % (Manual) 73.0 % (42.8-82.8) 06/26/20 07:50 Band Neutrophils % 0.0 % 06/26/20 07:50 Lymphocytes % No Result Required. 06/26/20 07:50 Lymphocytes % (Manual) 19.0 % (8-40) 06/26/20 07:50 Monocytes % (Manual) 6 % (3.8-10.2) 06/26/20 07:50 Eosinophils % (Manual) 2.0 % (0-4.5) 06/26/20 07:50 Basophils % (Manual) 0.0 % (0-2.0) 06/26/20 07:50 Myelocytes % (Man) 0 % (0-2) 06/26/20 07:50 Promyelocytes % (Man) 0 % (0-2) 06/26/20 07:50 Blast Cells % (Manual) 0 % (0-0) 06/26/20 07:50 Nucleated RBC % 0 % (0-0) 06/26/20 07:50 Metamyelocytes 0 % (0-2) 06/26/20 07:50 Hypochromia 0 06/26/20 07:50 Platelet Estimate Decreased 06/26/20 07:50 Polychromasia 0 06/26/20 07:50 Poikilocytosis 0 06/26/20 07:50 Anisocytosis 1+ 06/26/20 07:50 Microcytosis 0 06/26/20 07:50 Macrocytosis 2+ 06/26/20 07:50 Target Cells 1+ 06/26/20 07:50 Sodium 136 mmol/L (136-145) 06/26/20 07:50 Potassium 3.3 mmol/L (3.5-5.1) L 06/26/20 07:50 Chloride 103 mmol/L (98-107) 06/26/20 07:50 Carbon Dioxide 27 mmol/L (21-32) 06/26/20 07:50 Anion Gap 7 MMOL/L (8-16) L 06/26/20 07:50 BUN 9.8 mg/dL (7-18) 06/26/20 07:50 Creatinine 0.7 mg/dL (0.55-1.3) 06/26/20 07:50 Est GFR (CKD-EPI)AfAm 128.43 06/26/20 07:50 Est GFR (CKD-EPI)NonAf 110.81 06/26/20 07:50 Random Glucose 155 mg/dL (74-106) H 06/26/20 07:50 Calcium 8.4 mg/dL (8.5-10.1) L 06/26/20 07:50 Total Bilirubin 1.2 mg/dL (0.2-1) H 06/26/20 07:50 AST 104 U/L (15-37) H 06/26/20 07:50 ALT 70 U/L (13-61) H 06/26/20 07:50 Alkaline Phosphatase 675 U/L (45-117) H 06/26/20 07:50 Total Protein 6.4 g/dl (6.4-8.2) 06/26/20 07:50 Albumin 2.2 g/dl (3.4-5.0) L 06/26/20 07:50 Syphilis Serology Non-reactive (NONREACTIVE) 06/24/20 07:50 COVID-19 (RUBIA) Not detected (Not Detected) 06/23/20 23:30 Labs noted. Pertinent Admission Physical Exam Findings: Withdrawal symptoms. - Treatment Hospital Course: Detox Protocol Followed, Detoxed Safely, Responded well, Discharged Condition Good - Medication Discharge Medications: Ambulatory Orders Albuterol Sulfate Inhaler - [Ventolin HFA Inhaler -] 2 inh PO Q4H PRN #1 inhaler 05/09/20 Quetiapine Fumarate [Seroquel -] 100 mg PO HS #30 tablet 05/10/20 - Diagnosis (1) Alcohol dependence with uncomplicated withdrawal Current Visit: No Status: Acute (2) Cannabis abuse, uncomplicated Current Visit: No Status: Chronic (3) Asthma Current Visit: No Status: Chronic Qualifiers: Asthma severity: mild Asthma persistence: intermittent Asthma complication type: uncomplicated Qualified Code(s): J45.20 - Mild intermittent asthma, uncomplicated (4) Cocaine abuse Current Visit: No Status: Chronic (5) Nicotine dependence Current Visit: No Status: Chronic Qualifiers: Nicotine product type: cigarettes Substance use status: in withdrawal Qualified Code(s): F17.213 - Nicotine dependence, cigarettes, with withdrawal - AMA Did Patient Leave Against Medical Advice: No
[2020-06-27] MEDS ORDERED: MASKS NR ONE (09:52)
== END 2020-06-27 09:55 | disposition home or self-care (01) | DRG 774 ==
LOC: YASAS 17:38 → Y6N 20:32
PROVIDERS: ADMIT Allergy & Immunology; ATTEND Allergy & Immunology
PROC: HZ2ZZZZ Detoxification Services for Substance Abuse Treatment (ICD-10-PCS; principal; 2020-06-23)
DX: F10.230 Alcohol dependence with withdrawal, uncomplicated (principal); F14.20 Cocaine dependence, uncomplicated; F12.10 Cannabis abuse, uncomplicated; F17.210 Nicotine dependence, cigarettes, uncomplicated; F31.77 Bipolar disorder, in partial remission, most recent episode mixed; F19.282 Other psychoactive substance dependence with psychoactive substance-induced sleep disorder; F19.24 Other psychoactive substance dependence with psychoactive substance-induced mood disorder; D64.9 Anemia, unspecified; J45.20 Mild intermittent asthma, uncomplicated; E87.6 Hypokalemia; R73.9 Hyperglycemia, unspecified; R74.0 Nonspecific elevation of levels of transaminase and lactic acid dehydrogenase [LDH]; R74.8 Abnormal levels of other serum enzymes; Z62.810 Personal history of physical and sexual abuse in childhood; Z91.5 Personal history of self-harm; Z86.69 Personal history of other diseases of the nervous system and sense organs; Z98.890 Other specified postprocedural states; Z56.0 Unemployment, unspecified; Z59.0 Homelessness
CPT/HCPCS: 36415; 80053; 85025; 85027; 86780; U0003

== ENCOUNTER 2023-11-05 19:59 | Inpatient (IN) | payer OTHER ==
[2023-11-05 21:00] VITALS: BMI 24.3
[2023-11-05] MEDS ORDERED: ALBUTEROL SO4 HFA INHALER IH PRN (22:49)
[2023-11-05] MEDS ORDERED: BISMUTH SUBSALICYLATE 524 MG/30 ML PO PRN (23:29)
[2023-11-05] MEDS ORDERED: BENZONATATE 200 MG CAPSULE PO PRN (23:29)
[2023-11-05] MEDS ORDERED: ACETAMINOPHEN 325 MG TABLET (FP) PO PRN (23:29)
[2023-11-05] MEDS ORDERED: BENZOCAINE/MENTHOL (CHLORASEPTIC ) LOZENGE MM PRN (23:29)
[2023-11-05] MEDS ORDERED: LOPERAMIDE HCL 2 MG CAPSULE PO PRN (23:29)
[2023-11-05] MEDS ORDERED: DICYCLOMINE HCL 10 MG CAPSULE PO PRN (23:29)
[2023-11-05] MEDS ORDERED: NICOTINE POLACRILEX 2 MG GUM BUC PRN (23:29)
[2023-11-05] MEDS ORDERED: MAG HYDROX/AL HYDROX/SIMETH 30 ML UNIT-DOSE CUP PO PRN (23:29)
[2023-11-05] MEDS ORDERED: ONDANSETRON *ODT* 4 MG TABLET SL PRN (23:29)
[2023-11-05] MEDS ORDERED: P-EPHED 60MG/TRIPROLIDI 2.5MG TABLET PO PRN (23:29)
[2023-11-05] MEDS ORDERED: POLYETHYLENE GLYCOL (HEALTHYLAX) 3350 17 GM PACKET PO PRN (23:29)
[2023-11-05] MEDS ORDERED: guaiFENesin 600 MG TABLET.ER (FP) PO PRN (23:29)
[2023-11-05] MEDS ORDERED: MAGNESIUM HYDROX 2400MG/30ML ORAL SUSPENSION 30 ML CUP PO PRN (23:29)
[2023-11-06] MEDS: hydrOXYzine PAMOATE 25 MG CAPSULE (FP) PO PRN (01:44)
[2023-11-06] MEDS: METHOCARBAMOL 500 MG TABLET PO PRN (01:44)
[2023-11-06] MEDS: IBUPROFEN 600 MG TABLET (FP) PO PRN (01:44)
[2023-11-06] MEDS: PRENATAL VITAMINS W/ FOLIC ACID TABLET (FP) PO SCH (09:21)
[2023-11-06] MEDS: diazePAM 5 MG TABLET PO SCH (11:21)
[2023-11-06 11:49] LABS: HEMATOCRIT 38.5 % (35.4-49); HEMOGLOBIN 13.1 GM/dL (11.7-16.9); MCH 30.3 pg (25.7-33.7); MEAN CELL VOLUME 89.1 fl (80-96); MEAN PLT VOLUME 8.4 fl (7.5-11.1); PLATELET COUNT 216 10^3/uL (134-434); RBC 4.32 M/mm3 (4.00-5.60); RDW 13.2 % (11.9-15.9); WHITE BLOOD COUNT 4.4 K/mm3 (4.0-10.0)
[2023-11-06 12:31] LABS: ALBUMIN 2.8 g/dl (3.4-5.0); BLOOD UREA NITROGEN 19.2 mg/dL (7-18); CALCIUM 8.6 mg/dL (8.5-10.1)
[2023-11-06 12:34] LABS: CREATININE 0.9 mg/dL (0.55-1.3)
[2023-11-06 12:37] LABS: BILIRUBIN,TOTAL 0.3 mg/dL (0.2-1); TOT PROT 6.2 g/dl (6.4-8.2)
[2023-11-06] MEDS: MELATONIN 5 MG TABLETS PO SCH (22:13)
[2023-11-06] MEDS: THIAMINE HCL 100 MG TABLET (FP) PO SCH (22:13)
[2023-11-07] MEDS: IBUPROFEN 400 MG TABLET (FP) PO PRN (10:27)
[2023-11-08] MEDS: diazePAM 5 MG TABLET PO SCH (05:55)
[2023-11-08] MEDS: diazePAM 5 MG TABLET PO PRN (17:33)
[2023-11-08] MEDS ORDERED: QUEtiapine FUMARATE 100 MG TABLET (FP) PO SCH (22:00)
[2023-11-09] MEDS: diazePAM 5 MG TABLET PO SCH (05:36)
[2023-11-09 09:16] VITALS: BP 139/97; PULSE 99; RESP 20; TEMP 97.7
[2023-11-10] MEDS ORDERED: diazePAM 5 MG TABLET PO ONE (06:00)
== END 2023-11-09 09:55 | disposition home or self-care (01) | DRG 774 ==
LOC: YASAS 19:59 → Y3N 11-06 01:12
PROVIDERS: ADMIT Allergy & Immunology; ATTEND Surgery
PROC: HZ2ZZZZ Detoxification Services for Substance Abuse Treatment (ICD-10-PCS; principal; 2023-11-06)
DX: F10.230 Alcohol dependence with withdrawal, uncomplicated (principal); F14.20 Cocaine dependence, uncomplicated; F12.10 Cannabis abuse, uncomplicated; F17.210 Nicotine dependence, cigarettes, uncomplicated; F31.9 Bipolar disorder, unspecified; J45.20 Mild intermittent asthma, uncomplicated; Z91.148 Patient's other noncompliance with medication regimen for other reason; Z56.0 Unemployment, unspecified; Z59.00 Homelessness unspecified
CPT/HCPCS: 36415; 80053; 82962; 85027; 86780; 87635; 93005; 93010

== ENCOUNTER 2024-02-28 23:05 | Inpatient (IN) | payer OTHER ==
[2024-02-28 23:47] VITALS: BMI 24.6
[2024-02-29] MEDS ORDERED: hydrOXYzine PAMOATE 25 MG CAPSULE (FP) PO PRN (00:07)
[2024-02-29] MEDS ORDERED: NICOTINE POLACRILEX 4 MG GUM BUC PRN (00:07)
[2024-02-29] MEDS ORDERED: BENZOCAINE/MENTHOL (CHLORASEPTIC ) LOZENGE MM PRN (00:07)
[2024-02-29] MEDS ORDERED: guaiFENesin 600 MG TABLET.ER (FP) PO PRN (00:07)
[2024-02-29] MEDS ORDERED: ACETAMINOPHEN 325 MG TABLET (FP) PO PRN (00:07)
[2024-02-29] MEDS ORDERED: MAG HYDROX/AL HYDROX/SIMETH 30 ML UNIT-DOSE CUP PO PRN (00:07)
[2024-02-29] MEDS ORDERED: POLYETHYLENE GLYCOL (HEALTHYLAX) 3350 17 GM PACKET PO PRN (00:07)
[2024-02-29] MEDS ORDERED: NALOXONE HCL 0.4 MG/ML VIAL IM PRN (00:07)
[2024-02-29] MEDS ORDERED: DICYCLOMINE HCL 10 MG CAPSULE PO PRN (00:07)
[2024-02-29] MEDS ORDERED: MAGNESIUM HYDROX 2400MG/30ML ORAL SUSPENSION 30 ML CUP PO PRN (00:07)
[2024-02-29] MEDS ORDERED: LOPERAMIDE HCL 2 MG CAPSULE PO PRN (00:07)
[2024-02-29] MEDS ORDERED: BISMUTH SUBSALICYLATE 524 MG/30 ML PO PRN (00:07)
[2024-02-29] MEDS ORDERED: NALOXONE HCL (KLOXXADO) 8 MG SPRAY NS PRN (00:07)
[2024-02-29] MEDS ORDERED: IBUPROFEN 400 MG TABLET (FP) PO PRN (00:07)
[2024-02-29] MEDS ORDERED: IBUPROFEN 600 MG TABLET (FP) PO PRN (00:07)
[2024-02-29] MEDS ORDERED: BENZONATATE 200 MG CAPSULE PO PRN (00:07)
[2024-02-29] MEDS: ONDANSETRON *ODT* 4 MG TABLET SL PRN (00:18)
[2024-02-29] MEDS: NICOTINE 14 MG/24 HOURS TOPICAL PATCH TD SCH (10:19)
[2024-02-29] MEDS: PRENATAL VITAMINS W/ FOLIC ACID TABLET (FP) PO SCH (10:19)
[2024-02-29] MEDS: diazePAM 5 MG TABLET PO SCH (10:20)
[2024-02-29 11:53] LABS: HEMATOCRIT 36.7 % (35.4-49); HEMOGLOBIN 12.6 GM/dL (11.7-16.9); MCH 30.2 pg (25.7-33.7); MCHC 34.4 g/dl (32.0-35.9); MEAN CELL VOLUME 87.9 fl (80-96); PLATELET COUNT 224 10^3/uL (134-434); RBC 4.18 M/mm3 (4.00-5.60); RDW 14.4 % (11.9-15.9); WHITE BLOOD COUNT 8.1 K/mm3 (4.0-10.0)
[2024-02-29 11:54] LABS: CHLORIDE 102 mmol/L (98-107); POTASSIUM 4.5 mmol/L (3.5-5.1); SODIUM 135 mmol/L (136-145)
[2024-02-29 11:57] LABS: CALCIUM 8.9 mg/dL (8.5-10.1)
[2024-02-29 11:58] LABS: ALBUMIN 3.6 g/dl (3.4-5.0); ANION GAP 3 mmol/L (4-13); BLOOD UREA NITROGEN 15.3 mg/dL (7-18); CO2 30 mmol/L (21-32); GLUCOSE,RANDOM 82 mg/dL (74-106)
[2024-02-29 12:01] LABS: CREATININE 0.7 mg/dL (0.55-1.3); SGOT/AST 24 U/L (15-37); SGPT/ALT 33 U/L (13-61)
[2024-02-29 12:03] LABS: BILIRUBIN,TOTAL 0.5 mg/dL (0.2-1); TOT PROT 7.2 g/dl (6.4-8.2)
[2024-02-29 12:04] LABS: ALK PHOS 125 U/L (45-117)
[2024-02-29] MEDS: ALBUTEROL SO4 HFA INHALER IH PRN (17:30)
[2024-02-29] MEDS: MELATONIN 5 MG TABLETS PO SCH (22:08)
[2024-02-29] MEDS: QUEtiapine FUMARATE 100 MG TABLET (FP) PO SCH (22:08)
[2024-02-29] MEDS: THIAMINE 100 MG TABLET PO SCH (22:08)
[2024-03-01] MEDS: METHOCARBAMOL 500 MG TABLET PO PRN (22:18)
[2024-03-02] MEDS: diazePAM 5 MG TABLET PO SCH (06:05)
[2024-03-02] MEDS: diazePAM 5 MG TABLET PO PRN (10:01)
[2024-03-03] MEDS: diazePAM 5 MG TABLET PO SCH (05:29)
[2024-03-03] MEDS: amLODIPine BESYLATE 5 MG TABLET (FP) PO ONE (23:05)
[2024-03-04] MEDS: diazePAM 5 MG TABLET PO ONE (05:24)
[2024-03-04] MEDS: METOPROLOL TARTRATE 25 MG TABLET (FP) PO ONE (20:44)
[2024-03-05 13:00] VITALS: BP 140/92; PULSE 84; RESP 17; TEMP 97.7
== END 2024-03-05 13:55 | disposition other institution (70) | DRG 774 ==
LOC: YASAS 23:05 → Y3N 02-29 01:27
PROVIDERS: ADMIT Allergy & Immunology; ATTEND Allergy & Immunology
PROC: HZ2ZZZZ Detoxification Services for Substance Abuse Treatment (ICD-10-PCS; principal; 2024-02-29)
DX: F10.230 Alcohol dependence with withdrawal, uncomplicated (principal); F14.20 Cocaine dependence, uncomplicated; F12.20 Cannabis dependence, uncomplicated; F17.210 Nicotine dependence, cigarettes, uncomplicated; F19.24 Other psychoactive substance dependence with psychoactive substance-induced mood disorder; F31.9 Bipolar disorder, unspecified; I10 Essential (primary) hypertension; J45.20 Mild intermittent asthma, uncomplicated; M54.50 Low back pain, unspecified; G89.29 Other chronic pain; Z91.148 Patient's other noncompliance with medication regimen for other reason; Z59.01 Sheltered homelessness
CPT/HCPCS: 36415; 80053; 80305; 80307; 85027; 86780; 87811; 93005; 93010; Q0162

== ENCOUNTER 2024-03-05 13:57 | Inpatient (IN) | payer OTHER ==
[2024-03-05] MEDS ORDERED: POLYETHYLENE GLYCOL (HEALTHYLAX) 3350 17 GM PACKET PO PRN (15:50)
[2024-03-05] MEDS ORDERED: MAG HYDROX/AL HYDROX/SIMETH 30 ML UNIT-DOSE CUP PO PRN (15:50)
[2024-03-05] MEDS ORDERED: MAGNESIUM HYDROX 2400MG/30ML ORAL SUSPENSION 30 ML CUP PO PRN (15:50)
[2024-03-05] MEDS ORDERED: LOPERAMIDE HCL 2 MG CAPSULE PO PRN (15:50)
[2024-03-05] MEDS ORDERED: NICOTINE POLACRILEX 4 MG GUM BUC PRN (15:50)
[2024-03-05] MEDS ORDERED: ACETAMINOPHEN 325 MG TABLET (FP) PO PRN (15:50)
[2024-03-05] MEDS ORDERED: IBUPROFEN 400 MG TABLET (FP) PO PRN (15:50)
[2024-03-05] MEDS ORDERED: NICOTINE POLACRILEX 4 MG LOZENGE BC PRN (15:50)
[2024-03-05] MEDS ORDERED: NALOXONE HCL 0.4 MG/ML VIAL IVPUSH PRN (15:50)
[2024-03-05] MEDS ORDERED: NALOXONE (NARCAN) HCL 4 MG/0.1 ML SPRAY NS PRN (15:50)
[2024-03-05] MEDS ORDERED: ALBUTEROL SO4 HFA INHALER IH PRN (15:53)
[2024-03-05] MEDS: METHOCARBAMOL 500 MG TABLET PO PRN (21:30)
[2024-03-05] MEDS: THIAMINE 100 MG TABLET PO SCH (21:30)
[2024-03-05] MEDS: QUEtiapine FUMARATE 100 MG TABLET (FP) PO SCH (21:30)
[2024-03-05] MEDS: MELATONIN 5 MG TABLETS PO SCH (21:30)
[2024-03-06] MEDS: IBUPROFEN 600 MG TABLET (FP) PO PRN (09:09)
[2024-03-06] MEDS: PRENATAL VITAMINS W/ FOLIC ACID TABLET (FP) PO SCH (09:09)
[2024-03-06] MEDS: BENZONATATE 200 MG CAPSULE PO PRN (09:09)
[2024-03-06] MEDS: BENZOCAINE/MENTHOL (CHLORASEPTIC ) LOZENGE MM PRN (09:10)
[2024-03-06] MEDS: NICOTINE 21 MG/24 HOURS TOPICAL PATCH TD SCH (09:10)
[2024-03-06] MEDS: guaiFENesin 600 MG TABLET.ER (FP) PO PRN (18:26)
[2024-03-06] MEDS: QUEtiapine FUMARATE 200 MG TABLET PO SCH (21:49)
[2024-03-07] MEDS: LACTULOSE 20 GM/30 ML UDC (FOR ORAL USE ONLY) PO SCH (21:10)
[2024-03-07] MEDS: HYDROCORTISONE 1% TOPICAL OINT 30 GM TUBE TP PRN (21:11)
[2024-03-10] MEDS ORDERED: NICOTINE 21 MG/24 HOURS TOPICAL PATCH TD PRN (11:13)
[2024-03-11] MEDS: NALTREXONE HCL 50 MG TABLET PO SCH (11:22)
[2024-03-12 07:02] VITALS: TEMP 97.5
[2024-03-12] MEDS: hydrOXYzine PAMOATE 25 MG CAPSULE (FP) PO PRN (21:09)
[2024-03-13] MEDS: NALTREXONE MICROSPHERES (VIVITROL) 380 MG DISP.SYRIN IM ONE (06:14)
[2024-03-13 07:32] VITALS: BP 110/74; PULSE 85; RESP 18
== END 2024-03-13 09:37 | disposition home or self-care (01) | DRG 772 ==
LOC: YASAS 13:57 → Y3E 14:00
PROVIDERS: ADMIT Allergy & Immunology; ATTEND Psychiatry & Neurology Pain Medicine
PROC: HZ42ZZZ Group Counseling for Substance Abuse Treatment, Cognitive-Behavioral (ICD-10-PCS; principal; 2024-03-05)
DX: F10.20 Alcohol dependence, uncomplicated (principal); F14.20 Cocaine dependence, uncomplicated; F17.210 Nicotine dependence, cigarettes, uncomplicated; F19.282 Other psychoactive substance dependence with psychoactive substance-induced sleep disorder; F19.280 Other psychoactive substance dependence with psychoactive substance-induced anxiety disorder; F19.24 Other psychoactive substance dependence with psychoactive substance-induced mood disorder; F31.77 Bipolar disorder, in partial remission, most recent episode mixed; E72.20 Disorder of urea cycle metabolism, unspecified; J06.9 Acute upper respiratory infection, unspecified; L30.9 Dermatitis, unspecified
CPT/HCPCS: 0241U-QW; 36415; 80305; 82140; 86803; J2315

== ENCOUNTER 2024-05-01 23:03 | Inpatient (IN) | payer OTHER ==
[2024-05-01 23:50] VITALS: BMI 23.4
[2024-05-02] MEDS ORDERED: BENZONATATE 200 MG CAPSULE PO PRN (03:37)
[2024-05-02] MEDS ORDERED: IBUPROFEN 600 MG TABLET (FP) PO PRN (03:37)
[2024-05-02] MEDS ORDERED: POLYETHYLENE GLYCOL (HEALTHYLAX) 3350 17 GM PACKET PO PRN (03:37)
[2024-05-02] MEDS ORDERED: BENZOCAINE/MENTHOL (CHLORASEPTIC ) LOZENGE MM PRN (03:37)
[2024-05-02] MEDS ORDERED: NALOXONE (NARCAN) HCL 4 MG/0.1 ML SPRAY NS PRN (03:37)
[2024-05-02] MEDS ORDERED: ONDANSETRON *ODT* 4 MG TABLET SL PRN (03:37)
[2024-05-02] MEDS ORDERED: IBUPROFEN 400 MG TABLET (FP) PO PRN (03:37)
[2024-05-02] MEDS ORDERED: MAG HYDROX/AL HYDROX/SIMETH 30 ML UNIT-DOSE CUP PO PRN (03:37)
[2024-05-02] MEDS ORDERED: ACETAMINOPHEN 325 MG TABLET (FP) PO PRN (03:37)
[2024-05-02] MEDS ORDERED: guaiFENesin 600 MG TABLET.ER (FP) PO PRN (03:37)
[2024-05-02] MEDS ORDERED: DICYCLOMINE HCL 10 MG CAPSULE PO PRN (03:37)
[2024-05-02] MEDS ORDERED: BISMUTH SUBSALICYLATE 524 MG/30 ML PO PRN (03:37)
[2024-05-02] MEDS ORDERED: NICOTINE POLACRILEX 2 MG GUM BUC PRN (03:37)
[2024-05-02] MEDS ORDERED: LOPERAMIDE HCL 2 MG CAPSULE PO PRN (03:37)
[2024-05-02] MEDS ORDERED: NALOXONE HCL 0.4 MG/ML VIAL IM PRN (03:37)
[2024-05-02] MEDS ORDERED: MAGNESIUM HYDROX 2400MG/30ML ORAL SUSPENSION 30 ML CUP PO PRN (03:37)
[2024-05-02] MEDS ORDERED: ALBUTEROL SO4 HFA INHALER IH PRN ×2 (03:40)
[2024-05-02] MEDS: PRENATAL VITAMINS W/ FOLIC ACID TABLET (FP) PO SCH (10:13)
[2024-05-02] MEDS: hydrOXYzine PAMOATE 25 MG CAPSULE (FP) PO PRN (10:15)
[2024-05-02] MEDS: METHOCARBAMOL 500 MG TABLET PO PRN (10:15)
[2024-05-02] MEDS: NICOTINE 21 MG/24 HOURS TOPICAL PATCH TD SCH (10:18)
[2024-05-02] MEDS ORDERED: diazePAM 5 MG TABLET PO PRN (11:00)
[2024-05-02] MEDS: diazePAM 5 MG TABLET PO SCH (11:39)
[2024-05-02 13:07] LABS: CHLORIDE 107 mmol/L (98-107); POTASSIUM 3.8 mmol/L (3.5-5.1); SODIUM 139 mmol/L (136-145)
[2024-05-02 13:09] LABS: CALCIUM 8.5 mg/dL (8.5-10.1)
[2024-05-02 13:10] LABS: ANION GAP 5 mmol/L (4-13); BLOOD UREA NITROGEN 15.1 mg/dL (7-18); CO2 28 mmol/L (21-32); GLUCOSE,RANDOM 114 mg/dL (74-106)
[2024-05-02 13:13] LABS: CREATININE 0.8 mg/dL (0.55-1.3); SGOT/AST 15 U/L (15-37); SGPT/ALT 23 U/L (13-61)
[2024-05-02 13:16] LABS: ALK PHOS 127 U/L (45-117)
[2024-05-02 13:22] LABS: BILIRUBIN,TOTAL 0.1 mg/dL (0.2-1)
[2024-05-02 15:01] LABS: HEMATOCRIT 38.4 % (35.4-49); HEMOGLOBIN 12.8 GM/dL (11.7-16.9); MCH 30.1 pg (25.7-33.7); MCHC 33.4 g/dl (32.0-35.9); MEAN CELL VOLUME 90.1 fl (80-96); MEAN PLT VOLUME 8.9 fl (7.5-11.1); PLATELET COUNT 226 10^3/uL (134-434); RBC 4.26 M/mm3 (4.00-5.60); RDW 14.3 % (11.9-15.9)
[2024-05-02 17:09] LABS: HIV INTERPRETATION NEGATIVE (NEGATIVE)
[2024-05-02] MEDS: QUEtiapine FUMARATE 100 MG TABLET (FP) PO SCH (22:25)
[2024-05-02] MEDS: MELATONIN 5 MG TABLETS PO SCH (22:26)
[2024-05-02] MEDS: THIAMINE 100 MG TABLET PO SCH (22:26)
[2024-05-04] MEDS: diazePAM 5 MG TABLET PO SCH (05:33)
[2024-05-05] MEDS: diazePAM 5 MG TABLET PO SCH (05:35)
[2024-05-06] MEDS: diazePAM 5 MG TABLET PO ONE (05:43)
[2024-05-08 09:17] VITALS: BP 109/69; PULSE 82; RESP 17; TEMP 97.7
== END 2024-05-08 12:40 | disposition home or self-care (01) | DRG 774 ==
LOC: YASAS 23:03 → Y3N 05-02 03:50
PROVIDERS: ADMIT Allergy & Immunology; ATTEND Surgery
PROC: HZ2ZZZZ Detoxification Services for Substance Abuse Treatment (ICD-10-PCS; principal; 2024-05-02)
DX: F10.230 Alcohol dependence with withdrawal, uncomplicated (principal); F14.20 Cocaine dependence, uncomplicated; F12.20 Cannabis dependence, uncomplicated; F17.210 Nicotine dependence, cigarettes, uncomplicated; F41.9 Anxiety disorder, unspecified; F31.77 Bipolar disorder, in partial remission, most recent episode mixed; U07.1 COVID-19; M54.59 Other low back pain; G89.29 Other chronic pain; J45.20 Mild intermittent asthma, uncomplicated; G47.00 Insomnia, unspecified; R00.0 Tachycardia, unspecified; Z86.69 Personal history of other diseases of the nervous system and sense organs; Z56.0 Unemployment, unspecified; Z59.01 Sheltered homelessness
CPT/HCPCS: 36415; 80053; 80305; 80307; 85027; 86780; 87389; 87635; 87811; 93005; 93010